=== PATIENT | female | born 1985 | race Two or more races ===

== ENCOUNTER 2018-11-24 12:51 | Emergency (ER) | payer OTHER ==
[~2018-11-24] VITALS: Ht 157.5 cm; Wt 113.9 kg
[2018-11-24 13:20] VITALS: BP 116/77
[2018-11-24] MEDS ORDERED: IBUPROFEN 400 MG TABLET. PO ONE (13:30)
[2018-11-24] MEDS ORDERED: DEXAMETHASONE SOD PHOS 20 MG/5 ML VIAL. PO ONE (13:30)
[2018-11-24] MEDS ORDERED: predniSONE 10 MG TABLET PO ONE (13:45)
[2018-11-24] MEDS ORDERED: PENICILLIN G BENZATHINE LA 1,200,000 UNIT/2 ML DISP.SYRIN. IM ONE (14:00)
[2018-11-24] MEDS ORDERED: PRED20TA PO (14:05)
--- NOTE | 2018-11-24 14:07 | PHYS DOC ---
Adult General Chief Complaint Chief Complaint: VISION PROBLEM HPI HPI 33-year-old female presents to ER via POV for complaints of intermittent dizziness and headache. Patient states she had fever and HARDEN on Friday when sxs started. She reports she has had intermittent dizziness and blurred vision- denying current dizziness or vision changes. She states she has history of migraines and this is similar headaches to prior ones. Patient also states her left ear has felt clogged and she has had a sore throat. Patient denies nausea or vomiting. She denies urinary symptoms. She is currently on her menstrual cycle. She denies any [id number] medications today stating she took Tylenol yesterday with minimal relief in symptoms. Patient denies smoking history or recent travel. She denies other symptoms and with similar illness. Review of Systems Review of Systems Constitutional: Reports fever on Friday- afebrile currently. Reports generalized fatigue Eyes: Denies change in visual acuity, redness, or eye pain. Reports intermittent blurred vision- denies currently HENT: Denies nasal congestion. Reports sore/swollen and lt ear feels clogged- denies inability to swallow or loss of hearing Respiratory: Denies cough or shortness of breath [] Cardiovascular: No additional information not addressed in HPI [] GI: Denies abdominal pain, nausea, vomiting, bloody stools or diarrhea [] : Denies dysuria or hematuria [] Musculoskeletal: Denies back pain or joint pain [] Integument: Denies rash or skin lesions [] Neurologic: Denies focal weakness or sensory changes. Reports intermittent HARDEN and dizziness- currently denies dizziness All other systems were reviewed and found to be within normal limits, except as documented in this note. Current Medications Current Medications Current Medications Medications (Trade) Dose Ordered Sig/Jitendra Start Time Stop Time Status Last Admin Dose Admin Dexamethasone Sodium Phosphate (Decadron) 8 mg 1X ONCE 11/24/18 13:30 11/24/18 13:41 DC Ibuprofen (Motrin) 600 mg 1X ONCE 11/24/18 13:30 11/24/18 13:46 DC 11/24/18 13:55 600 MG Penicillin G Benzathine (Bicillin L-A) 1,200,000 unit 1X ONCE 11/24/18 14:00 11/24/18 14:01 DC 11/24/18 14:01 1,200,000 UNIT Prednisone (Prednisone) 50 mg 1X ONCE 11/24/18 13:45 11/24/18 13:46 DC 11/24/18 13:55 50 MG Allergies Allergies Allergies Coded Allergies Type Severity Reaction Last Updated Verified No Known Drug Allergies 11/24/18 No Physical Exam Physical Exam Constitutional: Well developed, well nourished, no acute distress, non-toxic appearance. Steady unassisted gait HENT: Normocephalic, atraumatic, bilat. erythema at TM without bulging/perforation/purulence- lt ear worse appearance, oropharynx moist- bilat. tonsillar swelling/erythema- no exudate- uvula midline, nose normal. No muffled voice/pooling of secretions Eyes: 3mm PERRLA, EOMI- no pain w/eye movements, no nystagmus, conjunctiva normal, no discharge. [] Neck: Normal range of motion, no tenderness/nuchal rigidity, supple, no stridor Cardiovascular: Heart rate regular rhythm, no murmur [] Lungs & Thorax: Bilateral breath sounds clear to auscultation- resp. equal/nonlabored Abdomen: Bowel sounds normal, soft, no tenderness Skin: Warm, dry, no erythema, no rash. [] Back: No tenderness, no CVA tenderness. [] Extremities: No tenderness, no cyanosis, no clubbing, ROM intact, no edema. [] Neurologic: Alert and oriented X 3, normal motor function, normal sensory function, no focal deficits noted. [] Psychologic: Affect normal, judgement normal, mood normal. [] Current Patient Data Vital Signs Vital Signs Date Time Temp Pulse Resp B/P (MAP) Pulse Ox O2 Delivery O2 Flow Rate FiO2 11/24/18 13:20 98.0 69 16 116/77 (90) 98 Room Air 98.0 Lab Values Laboratory Tests Test 11/24/18 13:30 Group A Streptococcus Rapid Positive (NEGATIVE) EKG EKG [] Radiology/Procedures Radiology/Procedures [] Course & Med Decision Making Course & Med Decision Making Pertinent Labs reviewed. (See chart for details) 1350: Discussed if strep test with patient and options for treatment. Following discussion on prescription versus IM antibiotic she opted to have IM Bicillin LA injection while in the ER. Discussed symptoms probably related to strep as patient had left ear erythema and swelling at tympanic membrane without purulence or perforation. Discussed symptomatic treatment at home. Patient has denied any dizziness or vision changes while in the ER. She was afebrile and nontoxic in appearance. She was treated with dose of prednisone and ibuprofen while in the ER she had not taken any medications prior to arrival. Will provide prescription for 4 additional days of prednisone. Education provided on signs and symptoms to return to ER. Discharge instructions were discussed. Patient to follow-up with primary care physician if symptoms persist or with any concerns. Community clinic resource sheet was provided to patient. Sandra Disclaimer Dragon Disclaimer This electronic medical record was generated, in whole or in part, using a voice recognition dictation system. Departure Departure Impression: Primary Impression: Strep throat Additional Impression: Dizziness Disposition: 01 HOME, SELF-CARE Condition: STABLE Patient Instructions: Dizziness, Strep Throat Additional Instructions: Drink plenty of fluids. Tylenol and/or ibuprofen as needed for pain as directed on container. If symptoms persist follow-up with your primary care physician for reevaluation and further care. Scripts Prednisone (PREDNISONE) 20 Mg Tablet 20 MG PO DAILY, #6 TAB Prov: SHANIQUE JACKSON APRN 11/24/18 Problem Qualifiers SHANIQUE JACKSON APRN Nov 24, 2018 14:07
== END 2018-11-24 14:18 | disposition home or self-care (01) ==
LOC: ER 12:51
DX: R42 Dizziness and giddiness (principal); J02.0 Streptococcal pharyngitis; B95.0 Streptococcus, group A, as the cause of diseases classified elsewhere; G43.909 Migraine, unspecified, not intractable, without status migrainosus
CPT/HCPCS: 87880; 96372; 99283; J0561; J7512

== ENCOUNTER 2020-09-28 12:18 | Inpatient (IN) | payer SELFPAY ==
[~2020-09-28] VITALS: Ht 157.5 cm; Wt 120.4 kg
[~2020-09-28 12:18] MED LIST: PRED20TA PO
[2020-09-28] MEDS ORDERED: FAMOTIDINE 20 MG/2 ML VIAL IVP ONE (13:30)
[2020-09-28] MEDS ORDERED: ONDANSETRON PF 4 MG/2 ML VIAL. IVP ONE (13:30)
[2020-09-28] MEDS ORDERED: fentaNYL PF VIAL 100 MCG/2 ML VIAL IVP ONE (13:30)
[2020-09-28] MEDS ORDERED: IV NORMAL SALINE 1000ML BAG 1,000 ML IV ONE ×2 (13:30→18:00)
--- NOTE | 2020-09-28 14:35 | RAD ---
Exam Date: 09/28/2020 1:32 PM US ABDOMEN LTD Indication: Reason: epigastric pain ruq pain / Spl. Instructions: / History: TECHNIQUE: Multiple longitudinal and transverse sonographic images of the right upper quadrant and g allbladder are submitted for interpretation. FINDINGS: The liver is normal in size but diffusely increased in echogenicity and heterogeneous in echotexture. The portal vein is patent, with hepatopetal flow. No focal intrahepatic abnormality is seen. There are multiple small gallstones. There is circumferential gallbladder wall thickening up to 6 mm. Small pericholecystic fluid is noted. The common bile duct measures 6 mm in diameter. The sonographe r reported a positive sonographic Yo sign. The visualized abdominal aorta, inferior vena cava and pancreas are within normal limits. There is n o upper abdominal ascites. The right kidney is normal in appearance, measuring 11.1 cm. IMPRESSION: Diffusely increased hepatic echogenicity and heterogeneous echotexture, consistent with underlying fa tty infiltration and/or hepatocellular disease. This limits sonographic sensitivity. Gallstones with circumferential gallbladder wall thickening and small pericholecystic fluid. Positive sonographic Yo sign, per the it senior analyst. Findings are consistent with acute cholecystitis. Clin ical correlation is recommended to confirm positive Yo sign on clinical exam. Findings discussed with Dr. Mamta Redding at 09/28/2020 2:31 PM. FOR INTERNAL CODING PURPOSES Critical result: RESULT CODE: (C) Electronically signed by: Toni Carreno MD (09/28/2020 2:33 PM) [id number]
[2020-09-28 14:47] LABS: BASO # 0.1 x10^3/uL (0.0-0.2); BASO % 1 % (0-3); EOS % 0 % (0-3); HEMATOCRIT 42.6 % (36.0-47.0); HEMOGLOBIN 14.3 g/dL (12.0-15.5); LYMPH # 1.7 x10^3/uL (1.0-4.8); LYMPH % 13 % (24-48); MEAN CORPUSCULAR HEMOGLOBIN 31 pg (25-35); MEAN CORPUSCULAR HGB CONC 34 g/dL (31-37); MEAN CORPUSCULAR VOLUME 91 fL (79-100); MONO # 0.6 x10^3/uL (0.0-1.1); MONO % 5 % (0-9); NEUT # 10.8 x10^3/uL (1.8-7.7); NEUT % 81 % (31-73); PLATELET COUNT 240 x10^3/uL (140-400); RED BLOOD COUNT 4.68 x10^6/uL (3.50-5.40); RED CELL DISTRIBUTION WIDTH 13.7 % (11.5-14.5); WHITE BLOOD COUNT 13.2 x10^3/uL (4.0-11.0)
[2020-09-28 15:00] LABS: CALCIUM 8.9 mg/dL (8.5-10.1); CREATININE 0.8 mg/dL (0.6-1.0); GFR 81.2; POTASSIUM 3.4 mmol/L (3.5-5.1)
[2020-09-28 15:07] LABS: ALBUMIN 3.4 g/dL (3.4-5.0); ALBUMIN/GLOBULIN RATIO 0.7 (1.0-1.7); TOTAL BILIRUBIN 3.7 mg/dL (0.2-1.0); TOTAL PROTEIN 8.5 g/dL (6.4-8.2)
[2020-09-28] MEDS ORDERED: PIPERACILLIN/TAZOBACTAM 3.375 GM in IV NORMAL SALINE 50ML 50 ML IV ONE (16:00)
--- NOTE | 2020-09-28 16:14 | PDOC1 ---
History and Physical Date of Admission Date of Admission DATE: 09/28/20 TIME: 16:11 Identification/Chief Complaint Chief Complaint ruq, epigastric pain x 3 days, vomiting History of Present Illness History of Present Illness 34 yr old female seen at urgent care yesterday with lower, chest, ruq pain, not improving presents to the ED today complaining of moderate epigastric abdominal pain with nausea and vomiting, symptoms began on Friday. worse on touching her abdomen. She states she was seen at urgent care yesterday for the same complaint and had a negative test and was given a GI cocktail which did not relieve her symptoms. Denies any fever. Denies any chest pain or shortness of breath. Describes the pain as sharp and constant., US concerning for acute cholecystitis Gallstones with circumferential gallbladder wall thickening and small pericholecystic fluid. Positive sonographic Yo sign, lipase very high as well Past Medical History Cardiovascular: No pertinent hx Pulmonary: No pertinent hx GI: No pertinent hx Psych: No pertinent hx Infectious disease: No pertinent hx Renal/: No pertinent hx Endocrine: No pertinent hx Family History Family History: High Cholestrol, Hypertension Social History Smoke: No ALCOHOL: none Drugs: None Current Medications Current Medications Current Medications Sodium Chloride 1,000 ml @ 1,000 mls/hr 1X ONCE IV ; Start 09/28/20 at 13:30; Stop 09/28/20 at 14:29; Status DC Fentanyl Citrate (Fentanyl 2ml Vial) 50 mcg 1X ONCE IVP ; Start 09/28/20 at 13:30; Stop 09/28/20 at 13:31; Status DC Ondansetron HCl (Zofran) 4 mg 1X ONCE IVP ; Start 09/28/20 at 13:30; Stop 09/28/20 at 13:31; Status DC Famotidine (Pepcid Vial) 20 mg 1X ONCE IVP ; Start 09/28/20 at 13:30; Stop 09/28/20 at 13:31; Status DC Piperacillin Sod/ Tazobactam Sod 3.375 gm/Sodium Chloride 50 ml @ 100 mls/hr 1X ONCE IV ; Start 09/28/20 at 16:00; Stop 09/28/20 at 16:29 Active Scripts Active Prednisone 20 Mg Tablet 20 Mg PO DAILY Allergies Allergies: Coded Allergies: No Known Drug Allergies (Unverified , 4/8/21) ROS General: No: Chills, Night Sweats, Fatigue, Malaise, Appetite, Other PSYCHOLOGICAL ROS: No: Anxiety, Behavioral Disorder, Concentration difficultie, Decreased libido, Depression, Disorientation, Hallucinations, Hostility, Irritablity, Memory difficulties, Mood Swings, Obsessive thoughts, Physical abuse, Sexual abuse, Sleep disturbances, Suicidal ideation, Other Eyes: No Blurry vision, No Decreased vision, No Double vision, No Dry eyes, No Excessive tearing, No Eye Pain, No Itchy Eyes, No Loss of vision, No Photophobia, No Scotomata, No Uses contacts, No Uses glasses, No Other HEENT: No: Heacaches, Visual Changes, Hearing change, Nasal congestion, Nasal discharge, Oral lesions, Sinus pain, Sore Throat, Epistaxis, Sneezing, Snoring, Tinnitus, Vertigo, Vocal changes, Other ALLERGY AND IMMUNOLOGY: No: Hives, Insect Bite Sensitivity, Itchy/Watery Eyes, Nasal Congestion, Post Nasal Drip, Seasonal Allergies, Other Hematological and Lymphatic: No: Bleeding Problems, Blood Clots, Blood Transfusions, Brusing, Night Sweats, Pallor, Swollen Lymph Nodes, Other ENDOCRINE: No: Breast Changes, Galactorrhea, Hair Pattern Changes, Hot Flashes, Malaise/lethargy, Mood Swings, Palpitations, Polydipsia/polyuria, Skin Changes, Temperature Intolerance, Unexpected Weight Changes, Other Breast: No New/Changing Breast Lumps, No Nipple changes, No Nipple discharge, No Other Respiratory: No: Cough, Hemoptysis, Orthopnea, Pleuritic Pain, Shortness of breath, SOB with excertion, Sputum Changes, Stridor, Tachypnea, Wheezing, Other Cardiovascular: No Chest Pain, No Palpitations, No Orthopnea, No Paroxysmal Noc. Dyspnea, No Edema, No Lt Headedness, No Other Gastrointestinal: Yes Nausea, Yes Vomiting, Yes Abdominal Pain; No Diarrhea, No Constipation, No Melena, No Hematochezia, No Other Genitourinary: No Dysuria, No Frequency, No Incontinence, No Hematuria, No Retention, No Discharge, No Urgency, No Pain, No Flank Pain, No Other, No , No , No , No , No , No , No Musculoskeletal: No Gait Disturbance, No Joint Pain, No Joint Stiffness, No Joint Swelling, No Muscle Pain, No Muscular Weakness, No Pain In:, No Swelling In:, No Other Neurological: No Behavorial Changes, No Bowel/Bladder ControlChng, No Confusion, No Dizziness, No Gait Disturbance, No Headaches, No Impaired Coord/balance, No Memory Loss, No Numbness/Tingling, No Seizures, No Speech Problems, No Tremors, No Visual Changes, No Weakness, No Other Skin: Yes Dry Skin; No Eczema, No Hair Changes, No Lumps, No Mole Changes, No Mottling, No Nail Changes, No Pruritus, No Rash, No Skin Lesion Changes, No Other, No Acne Physical Exam Physical Exam LYING ON CART IN BED 9 ER General: Alert, Oriented X3, Cooperative, No acute distress, mild distress HEENT: Atraumatic, PERRLA, EOMI, Mucous membr. moist/pink Lungs: Clear to auscultation, Normal air movement Heart: S1S2, RRR, no thrills, no rubs, no gallops, no murmurs Cardiovascular: S1, S2 Breasts: Not examined Abdomen: Normal bowel sounds, Soft Rectal Exam: not examined PELVIC: Examination not indicated Extremities: No cyanosis, No edema Skin: No rashes Neuro: Normal speech, Sensation intact, Cranial nerves 3-12 NL Psych/Mental Status: Mental status NL, Mood NL Vitals Vitals Vital Signs Date Time Temp Pulse Resp B/P (MAP) Pulse Ox O2 Delivery O2 Flow Rate FiO2 09/28/20 13:05 98.8 71 18 160/106 (124) 96 Room Air 98.8 Labs Labs Laboratory Tests Test 09/28/20 14:40 White Blood Count 13.2 x10^3/uL (4.0-11.0) Red Blood Count 4.68 x10^6/uL (3.50-5.40) Hemoglobin 14.3 g/dL (12.0-15.5) Hematocrit 42.6 % (36.0-47.0) Mean Corpuscular Volume 91 fL (79-100) Mean Corpuscular Hemoglobin 31 pg (25-35) Mean Corpuscular Hemoglobin Concent 34 g/dL (31-37) Red Cell Distribution Width 13.7 % (11.5-14.5) Platelet Count 240 x10^3/uL (140-400) Neutrophils (%) (Auto) 81 % (31-73) Lymphocytes (%) (Auto) 13 % (24-48) Monocytes (%) (Auto) 5 % (0-9) Eosinophils (%) (Auto) 0 % (0-3) Basophils (%) (Auto) 1 % (0-3) Neutrophils # (Auto) 10.8 x10^3/uL (1.8-7.7) Lymphocytes # (Auto) 1.7 x10^3/uL (1.0-4.8) Monocytes # (Auto) 0.6 x10^3/uL (0.0-1.1) Eosinophils # (Auto) 0.0 x10^3/uL (0.0-0.7) Basophils # (Auto) 0.1 x10^3/uL (0.0-0.2) Sodium Level 137 mmol/L (136-145) Potassium Level 3.4 mmol/L (3.5-5.1) Chloride Level 100 mmol/L (98-107) Carbon Dioxide Level 28 mmol/L (21-32) Anion Gap 9 (6-14) Blood Urea Nitrogen 7 mg/dL (7-20) Creatinine 0.8 mg/dL (0.6-1.0) Estimated GFR (Cockcroft-Gault) 81.2 BUN/Creatinine Ratio 9 (6-20) Glucose Level 120 mg/dL (70-99) Calcium Level 8.9 mg/dL (8.5-10.1) Total Bilirubin 3.7 mg/dL (0.2-1.0) Aspartate Amino Transf (AST/SGOT) 165 U/L (15-37) Alanine Aminotransferase (ALT/SGPT) 213 U/L (14-59) Alkaline Phosphatase 156 U/L (46-116) Total Protein 8.5 g/dL (6.4-8.2) Albumin 3.4 g/dL (3.4-5.0) Albumin/Globulin Ratio 0.7 (1.0-1.7) Laboratory Tests Test 09/28/20 14:40 White Blood Count 13.2 x10^3/uL (4.0-11.0) Red Blood Count 4.68 x10^6/uL (3.50-5.40) Hemoglobin 14.3 g/dL (12.0-15.5) Hematocrit 42.6 % (36.0-47.0) Mean Corpuscular Volume 91 fL (79-100) Mean Corpuscular Hemoglobin 31 pg (25-35) Mean Corpuscular Hemoglobin Concent 34 g/dL (31-37) Red Cell Distribution Width 13.7 % (11.5-14.5) Platelet Count 240 x10^3/uL (140-400) Neutrophils (%) (Auto) 81 % (31-73) Lymphocytes (%) (Auto) 13 % (24-48) Monocytes (%) (Auto) 5 % (0-9) Eosinophils (%) (Auto) 0 % (0-3) Basophils (%) (Auto) 1 % (0-3) Neutrophils # (Auto) 10.8 x10^3/uL (1.8-7.7) Lymphocytes # (Auto) 1.7 x10^3/uL (1.0-4.8) Monocytes # (Auto) 0.6 x10^3/uL (0.0-1.1) Eosinophils # (Auto) 0.0 x10^3/uL (0.0-0.7) Basophils # (Auto) 0.1 x10^3/uL (0.0-0.2) Sodium Level 137 mmol/L (136-145) Potassium Level 3.4 mmol/L (3.5-5.1) Chloride Level 100 mmol/L (98-107) Carbon Dioxide Level 28 mmol/L (21-32) Anion Gap 9 (6-14) Blood Urea Nitrogen 7 mg/dL (7-20) Creatinine 0.8 mg/dL (0.6-1.0) Estimated GFR (Cockcroft-Gault) 81.2 BUN/Creatinine Ratio 9 (6-20) Glucose Level 120 mg/dL (70-99) Calcium Level 8.9 mg/dL (8.5-10.1) Total Bilirubin 3.7 mg/dL (0.2-1.0) Aspartate Amino Transf (AST/SGOT) 165 U/L (15-37) Alanine Aminotransferase (ALT/SGPT) 213 U/L (14-59) Alkaline Phosphatase 156 U/L (46-116) Total Protein 8.5 g/dL (6.4-8.2) Albumin 3.4 g/dL (3.4-5.0) Albumin/Globulin Ratio 0.7 (1.0-1.7) Images Images PATIENT: LUIS M TOURE ACCOUNT: [id number] : 1985 LOCATION: ER AGE: 34 SEX: F EXAM STATUS: REG ER ORD. PHYSICIAN: JOSE GUADALUPE PIERSON APRN REASON: epigastric pain ruq pain PROCEDURE: ABDOMEN LTD Exam Date: 09/28/2020 1:32 PM US ABDOMEN LTD Indication: Reason: epigastric pain ruq pain / Spl. Instructions: / History: TECHNIQUE: Multiple longitudinal and transverse sonographic images of the right upper quadrant and gallbladder are submitted for interpretation. FINDINGS: The liver is normal in size but diffusely increased in echogenicity and heterogeneous in echotexture. The portal vein is patent, with hepatopetal flow. No focal intrahepatic abnormality is seen. There are multiple small gallstones. There is circumferential gallbladder wall thickening up to 6 mm. Small pericholecystic fluid is noted. The common bile duct measures 6 mm in diameter. The schedule hanger reported a positive sonographic Yo sign. The visualized abdominal aorta, inferior vena cava and pancreas are within normal limits. There is no upper abdominal ascites. The right kidney is normal in appearance, measuring 11.1 cm. IMPRESSION: Diffusely increased hepatic echogenicity and heterogeneous echotexture, consistent with underlying fatty infiltration and/or hepatocellular disease. This limits sonographic sensitivity. Gallstones with circumferential gallbladder wall thickening and small pericholecystic fluid. Positive sonographic Yo sign, per the schedule hanger. Findings are consistent with acute cholecystitis. Clinical correlation is recommended to confirm positive Yo sign on clinical exam. Findings discussed with Dr. Mamta Redding at 09/28/2020 2:31 PM. FOR INTERNAL CODING PURPOSES Critical result: RESULT CODE: (C) Electronically signed by: Freida Carreno MD (09/28/2020 2:33 PM) [id number] DICTATED and SIGNED BY: FREIDA CARRENO MD DATE: 09/28/20 [id number] VTE Prophylaxis Ordered VTE Prophylaxis Devices: Yes VTE Pharmacological Prophylaxi: Yes Assessment/Plan Assessment/Plan IMPRESSION: ACUTE ruq PAIN/ gallstone pancreatitis Diffusely increased hepatic echogenicity and heterogeneous echotexture, consistent with underlying fatty infiltration and/or hepatocellular disease. Gallstones with circumferential gallbladder wall thickening Positive sonographic Yo sign, / consistent with acute cholecystitis morbid obesity SIRS LEUKOCYTOSIS PLAN ADMIT NPO Surgery consult iv fluid support GI CONSULT IV PAIN CONTROL DVT PROPHYLAXIS GI prophylaxis, iv protonix urine hcg iv zosyn Justifications for Admission Other Justification KRISSY JAY MD Sep 28, 2020 16:13
--- NOTE | 2020-09-28 17:48 | PHYS DOC ---
Past Medical History Past Medical History: No Pertinent History Past Surgical History: No Surgical History Smoking Status: Never Smoker Alcohol Use: None Drug Use: None General Adult EDM: Chief Complaint: ABDOMINAL PAIN HPI: HPI: Patient is a 34 year old female no significant medical history who presents to the ED today complaining of moderate epigastric abdominal pain with nausea and vomiting, symptoms began on Friday. Patient symptoms are worse on touching her abdomen. Denies anything specifically relieving the symptoms. She states she was seen at urgent care yesterday for the same complaint and had a negative test and was given a GI cocktail which did not relieve her symptoms. Denies any fever. Denies any chest pain or shortness of breath. Describes the pain as sharp and constant. Review of Systems: Review of Systems: Constitutional: Denies fever or chills. [] Eyes: Denies change in visual acuity. [] HENT: Denies nasal congestion or sore throat. [] Respiratory: Denies cough or shortness of breath. [] Cardiovascular: Denies chest pain or edema. [] GI: Reports epigastric abdominal pain with nausea and vomiting, denies bloody stools or diarrhea. [] : Denies dysuria. [] Musculoskeletal: Denies back pain or joint pain. [] Integument: Denies rash. [] Neurologic: Denies headache, focal weakness or sensory changes. [] Psychiatric: Denies depression or anxiety. [] Heart Score: C/O Chest Pain: N/A Risk Factors: Risk Factors: DM, Current or recent (<one month) smoker, HTN, HLP, family history of CAD, obesity. Risk Scores: Score 0 - 3: 2.5% MACE over next 6 weeks - Discharge Home Score 4 - 6: 20.3% MACE over next 6 weeks - Admit for Clinical Observation Score 7 - 10: 72.7% MACE over next 6 weeks - Early Invasive Strategies Current Medications: Current Medications Medications (Trade) Dose Ordered Sig/Jitendra Start Time Stop Time Status Last Admin Dose Admin Famotidine (Pepcid Vial) 20 mg 1X ONCE 09/28/20 13:30 09/28/20 13:31 DC 09/28/20 17:10 20 MG Fentanyl Citrate (Fentanyl 2ml Vial) 50 mcg 1X ONCE 09/28/20 13:30 09/28/20 13:31 DC 09/28/20 17:10 50 MCG Ondansetron HCl (Zofran) 4 mg 1X ONCE 09/28/20 13:30 09/28/20 13:31 DC 09/28/20 17:10 4 MG Piperacillin Sod/ Tazobactam Sod 3.375 gm/Sodium Chloride 50 ml @ 100 mls/hr 1X ONCE 09/28/20 16:00 09/28/20 16:29 DC Sodium Chloride 1,000 ml @ 1,000 mls/hr 1X ONCE 09/28/20 13:30 09/28/20 14:29 DC 09/28/20 17:08 1,000 MLS/HR Allergies: Allergies: Allergies Coded Allergies Type Severity Reaction Last Updated Verified No Known Drug Allergies 09/28/20 No Physical Exam: PE: Constitutional: Well developed, well nourished, no acute distress, non-toxic appearance. [] HENT: Normocephalic, atraumatic, bilateral external ears normal, oropharynx moist, no oral exudates, nose normal. [] Eyes: PERRLA, EOMI, conjunctiva normal, no discharge. [] Neck: Normal range of motion, no tenderness, supple, no stridor. [] Cardiovascular:Heart rate regular rhythm, no murmur [] Lungs & Thorax: Bilateral breath sounds clear to auscultation [] Abdomen: Rounded abdomen. Bowel sounds normal, soft, moderate epigastric pain a s well as moderate right upper quadrant pain with positive Yo sign, no right lower quadrant pain no tenderness no masses, no pulsatile masses. [] Skin: Warm, dry, no erythema, no rash. [] Back: No tenderness, no CVA tenderness. [] Extremities: No tenderness, no cyanosis, no clubbing, ROM intact, no edema. [] Neurologic: Alert and oriented X 3, normal motor function, normal sensory function, no focal deficits noted. [] Psychologic: Affect normal, judgement normal, mood normal. [] Current Patient Data: Labs: Laboratory Tests Test 09/28/20 14:40 White Blood Count 13.2 x10^3/uL (4.0-11.0) H Red Blood Count 4.68 x10^6/uL (3.50-5.40) Hemoglobin 14.3 g/dL (12.0-15.5) Hematocrit 42.6 % (36.0-47.0) Mean Corpuscular Volume 91 fL (79-100) Mean Corpuscular Hemoglobin 31 pg (25-35) Mean Corpuscular Hemoglobin Concent 34 g/dL (31-37) Red Cell Distribution Width 13.7 % (11.5-14.5) Platelet Count 240 x10^3/uL (140-400) Neutrophils (%) (Auto) 81 % (31-73) H Lymphocytes (%) (Auto) 13 % (24-48) L Monocytes (%) (Auto) 5 % (0-9) Eosinophils (%) (Auto) 0 % (0-3) Basophils (%) (Auto) 1 % (0-3) Neutrophils # (Auto) 10.8 x10^3/uL (1.8-7.7) H Lymphocytes # (Auto) 1.7 x10^3/uL (1.0-4.8) Monocytes # (Auto) 0.6 x10^3/uL (0.0-1.1) Eosinophils # (Auto) 0.0 x10^3/uL (0.0-0.7) Basophils # (Auto) 0.1 x10^3/uL (0.0-0.2) Sodium Level 137 mmol/L (136-145) Potassium Level 3.4 mmol/L (3.5-5.1) L Chloride Level 100 mmol/L (98-107) Carbon Dioxide Level 28 mmol/L (21-32) Anion Gap 9 (6-14) Blood Urea Nitrogen 7 mg/dL (7-20) Creatinine 0.8 mg/dL (0.6-1.0) Estimated GFR (Cockcroft-Gault) 81.2 BUN/Creatinine Ratio 9 (6-20) Glucose Level 120 mg/dL (70-99) H Calcium Level 8.9 mg/dL (8.5-10.1) Total Bilirubin 3.7 mg/dL (0.2-1.0) H Aspartate Amino Transferase (AST) 165 U/L (15-37) H Alanine Aminotransferase (ALT) 213 U/L (14-59) H Alkaline Phosphatase 156 U/L (46-116) H Total Protein 8.5 g/dL (6.4-8.2) H Albumin 3.4 g/dL (3.4-5.0) Albumin/Globulin Ratio 0.7 (1.0-1.7) L Lipase 60181 U/L (73-393) H Laboratory Tests 09/28/20 14:40 Laboratory Tests 09/28/20 14:40 Vital Signs: Vital Signs Date Time Temp Pulse Resp B/P (MAP) Pulse Ox O2 Delivery O2 Flow Rate FiO2 09/28/20 17:12 163/99 (120) 09/28/20 13:48 68 98 Room Air 09/28/20 13:05 98.8 18 98.8 EKG: EKG: [] Radiology/Procedures: Radiology/Procedures: []PROCEDURE: ABDOMEN LTD Exam Date: 09/28/2020 1:32 PM US ABDOMEN LTD Indication: Reason: epigastric pain ruq pain / Spl. Instructions: / History: TECHNIQUE: Multiple longitudinal and transverse sonographic images of the right upper quadrant and gallbladder are submitted for interpretation. FINDINGS: The liver is normal in size but diffusely increased in echogenicity and heterogeneous in echotexture. The portal vein is patent, with hepatopetal flow. No focal intrahepatic abnormality is seen. There are multiple small gallstones. There is circumferential gallbladder wall thickening up to 6 mm. Small pericholecystic fluid is noted. The common bile duct measures 6 mm in diameter. The optical designer reported a positive sonographic Yo sign. The visualized abdominal aorta, inferior vena cava and pancreas are within normal limits. There is no upper abdominal ascites. The right kidney is normal in appearance, measuring 11.1 cm. IMPRESSION: Diffusely increased hepatic echogenicity and heterogeneous echotexture, consistent with underlying fatty infiltration and/or hepatocellular disease. This limits sonographic sensitivity. Gallstones with circumferential gallbladder wall thickening and small pericholecystic fluid. Positive sonographic Yo sign, per the optical designer. Findings are consistent with acute cholecystitis. Clinical correlation is recommended to confirm positive Yo sign on clinical exam. Findings discussed with Dr. Mamta Redding at 09/28/2020 2:31 PM. FOR INTERNAL CODING PURPOSES Critical result: RESULT CODE: (C) Electronically signed by: Freida Carreno MD (09/28/2020 2:33 PM) [id number] DICTATED and SIGNED BY: FREIDA CARRENO MD DATE: 09/28/20 [id number] 0 Course & Med Decision Making: Course & Med Decision Making Pertinent Labs and Imaging studies reviewed. (See chart for details) This is a 34-year-old female patient presented to the ED today complaining of epigastric abdominal pain since Friday. Vitals on arrival to the ED temperature 98.8, heart rate 71, respiration 18, blood pressure 160/106, O2 sats 96% on room air CBC with a WBC of 13.7, CMP with bilirubin of 3.7, AST was 65, ALT 213, ALK 156. Lipase 14,668 Limited right upper quadrant ultrasound was noted for acute cholecystitis We will continue IV fluids, given Zosyn. Spoke with Dr. Balderrama will follow up with patient Spoke with GI Dr. Lomax Spoke with Dr. Rios who accepted patient for admission [place] Disclaimer: Sandra Disclaimer: This electronic medical record was generated, in whole or in part, using a voice recognition dictation system. Departure Departure Impression: Primary Impression: Acute cholecystitis Additional Impression: Acute pancreatitis Qualified Codes: K85.90 - Acute pancreatitis without necrosis or infection, unspecified Disposition: 09 ADMITTED INPT THIS HOSP Condition: STABLE Referrals: NO PCP (PCP) JOSE GUADALUPE PIERSON [employer]GEANT [employer] Sep 28, 2020 17:48
[2020-09-28] MEDS ORDERED: ONDANSETRON PF 4 MG/2 ML VIAL. IV PRN ×2 (18:00→20:15)
[2020-09-28] MEDS ORDERED: fentaNYL PF VIAL 100 MCG/2 ML VIAL IV PRN (18:00)
[2020-09-28 19:00] VITALS: BP 152/96
[2020-09-28] MEDS ORDERED: HYDROmorphone 2 MG/ML VIAL IV PRN (20:15)
[2020-09-28] MEDS ORDERED: ACETAMINOPHEN 325 MG TABLET. PO PRN (20:15)
[2020-09-28] MEDS ORDERED: cloNIDine HCL 0.1 MG TABLET PO PRN (20:15)
[2020-09-28] MEDS ORDERED: DOCUSATE SODIUM 100 MG CAPSULE. PO PRN (20:15)
[2020-09-28] MEDS ORDERED: ALBUTEROL SULFATE 2.5 MG/3 ML NEBU. NEB PRN (20:15)
[2020-09-28] MEDS ORDERED: hydrALAZINE 20 MG/ML VIAL. IVP PRN (20:15)
[2020-09-28] MEDS ORDERED: SODIUM PHOSPHATES 19/7GM 133 ML ENEMA. PR PRN (20:15)
[2020-09-28] MEDS ORDERED: ACETAMINOPHEN 650 MG SUPP.RECT. PR PRN (20:15)
[2020-09-28] MEDS ORDERED: 0.9 % SODIUM CHLORIDE 10 ML DISP.SYRIN. IV PRN (20:15)
[2020-09-28] MEDS ORDERED: guaiFENesin ORAL 200 MG/10 ML LIQUID. PO PRN (20:15)
[2020-09-28] MEDS ORDERED: LORazepam 0.5 MG TABLET PO PRN (20:15)
--- NOTE | 2020-09-28 21:30 | NUR ---
Patient is informed that a urine specimen needed, as to check for -surgery potentially planned for tomorrow. Patient verbalizes to understand.
[2020-09-28] MEDS: PANTOPRAZOLE IV PUSH 40 MG VIAL. IVP SCH (21:58)
[2020-09-28] MEDS: ENOXAPARIN 40 MG/0.4 ML SYRINGE. SQ SCH (21:59)
[2020-09-28] MEDS: IV NORMAL SALINE 1000ML BAG 1,000 ML IV SCH (22:00)
[2020-09-28 23:00] VITALS: BP 133/90
[2020-09-29] MEDS: PIPERACILLIN/TAZOBACTAM 3.375 GM in IV NORMAL SALINE 50ML 50 ML IV SCH ×4 (00:04→16:34)
[2020-09-29 03:00] VITALS: BP 131/82
[2020-09-29] MEDS: IV NORMAL SALINE 1000ML BAG 1,000 ML IV SCH ×2 (03:26→15:07)
--- NOTE | 2020-09-29 03:41 | NUR ---
Patient voided in the speci todd, but reported that she started her 'period' and since the urine had blood in it, she dumped it out. Patient is taking a shower, and states she will give a specimen before the am,
[2020-09-29 07:00] VITALS: BP 114/59
[2020-09-29] MEDS: PANTOPRAZOLE IV PUSH 40 MG VIAL. IVP SCH (07:56)
--- NOTE | 2020-09-29 09:00 | PDOC2 ---
LAURIE BLACK REGULATORY LEADER 09/29/20 0900: CONSULT Date of Consult Date of Consult DATE: 09/29/20 TIME: 08:56 Reason for Consult Reason for Consult: cholecystitis Referring Physician Referring Physician: ER Identification/Chief Complaint Chief Complaint abdominal pain Source Source: Chart review, Patient History of Present Illness Reason for Visit: Admitted with RUQ pain, nausea and emesis for almost a week. She has had these symptoms in past, although this time did not improve. No fevers or chills. Past Medical History Cardiovascular: No pertinent hx Pulmonary: No pertinent hx GI: No pertinent hx Psych: No pertinent hx Infectious disease: No pertinent hx Renal/: No pertinent hx Endocrine: No pertinent hx Past Surgical History Past Surgical History: Family History Family History: High Cholestrol, Hypertension Social History No ALCOHOL: none Drugs: None Current Problem List Problem List Problems Medical Problems: (1) Acute cholecystitis Status: Acute (2) Acute pancreatitis Status: Acute (3) Cholecystitis Status: Acute Current Medications Current Medications Current Medications Sodium Chloride 1,000 ml @ 1,000 mls/hr 1X ONCE IV Last administered on 09/28/20at 17:08; Start 09/28/20 at 13:30; Stop 09/28/20 at 14:29; Status DC Fentanyl Citrate (Fentanyl 2ml Vial) 50 mcg 1X ONCE IVP Last administered on 09/28/20at 17:10; Start 09/28/20 at 13:30; Stop 09/28/20 at 13:31; Status DC Ondansetron HCl (Zofran) 4 mg 1X ONCE IVP Last administered on 09/28/20at 17:10; Start 09/28/20 at 13:30; Stop 09/28/20 at 13:31; Status DC Famotidine (Pepcid Vial) 20 mg 1X ONCE IVP Last administered on 09/28/20at 17:10; Start 09/28/20 at 13:30; Stop 09/28/20 at 13:31; Status DC Piperacillin Sod/ Tazobactam Sod 3.375 gm/Sodium Chloride 50 ml @ 100 mls/hr 1X ONCE IV Last administered on 09/28/20at 18:28; Start 09/28/20 at 16:00; Stop 09/28/20 at 16:29; Status DC Ondansetron HCl (Zofran) 4 mg PRN Q8HRS PRN IV NAUSEA/VOMITING; Start 09/28/20 at 18:00; Stop 09/29/20 at 17:59 Fentanyl Citrate (Fentanyl 2ml Vial) 50 mcg PRN Q1HR PRN IV PAIN; Start 09/28/20 at 18:00; Stop 09/29/20 at 17:59 Sodium Chloride 1,000 ml @ 125 mls/hr 1X ONCE IV Last administered on 09/28/20at 18:28; Start 09/28/20 at 18:00; Stop 09/29/20 at 01:59; Status DC Sodium Chloride (Normal Saline Flush) 3 ml QSHIFT PRN IV AFTER MEDS AND BLOOD DRAWS; Start 09/28/20 at 20:15 Sodium Chloride 1,000 ml @ 100 mls/hr Q10H IV Last administered on 09/29/20at 03:26; Start 09/28/20 at 20:15 Ondansetron HCl (Zofran) 4 mg PRN Q4HRS PRN IV NAUSEA/VOMITING; Start 09/28/20 at 20:15 Acetaminophen (Tylenol) 650 mg PRN Q4HRS PRN PO TEMP OVER 100.4F OR MILD PAIN; Start 09/28/20 at 20:15 Acetaminophen (Tylenol Supp) 650 mg PRN Q4HRS PRN TN TEMP OVER 100.4F OR MILD PAIN; Start 09/28/20 at 20:15 Clonidine HCl (Catapres) 0.1 mg PRN Q6HRS PRN PO SBP>160 OR DBP>90; Start 09/28/20 at 20:15 Sodium Monofluorophosphate (Fleet Adult) 133 ml PRN DAILY PRN TN CONSTIPATION; Start 09/28/20 at 20:15 Docusate Sodium (Colace) 100 mg PRN BID PRN PO HARD STOOLS; Start 09/28/20 at 20:15 Albuterol Sulfate (Ventolin Neb Soln) 2.5 mg PRN Q4HRS PRN NEB SHORTNESS OF BREATH; Start 09/28/20 at 20:15 Guaifenesin (Robitussin) 200 mg PRN Q4HRS PRN PO COUGH; Start 09/28/20 at 20:15 Lorazepam (Ativan) 0.5 mg PRN Q4HRS PRN PO ANXIETY / AGITATION; Start 09/28/20 at 20:15 Hydromorphone HCl (Dilaudid) 0.5 mg PRN Q2HRS PRN IV SEVERE PAIN 7-10; Start 09/28/20 at 20:15 Enoxaparin Sodium (Lovenox 40mg Syringe) 40 mg Q24H SQ Last administered on 09/28/20at 21:59; Start 09/28/20 at 20:15 Piperacillin Sod/ Tazobactam Sod 3.375 gm/Sodium Chloride 50 ml @ 100 mls/hr Q6HRS IV Last administered on 09/29/20at 05:44; Start 09/29/20 at 00:00 Pantoprazole Sodium (PROTONIX VIAL for IV PUSH) 40 mg DAILY08 IVP Last administered on 09/29/20at 07:56; Start 09/28/20 at 20:15 Hydralazine HCl (Apresoline Inj) 10 mg PRN Q4HRS PRN IVP ELEVATED BP, SEE COMMENTS; Start 09/28/20 at 20:15 Active Scripts Active Prednisone 20 Mg Tablet 20 Mg PO DAILY Allergies Allergies: Coded Allergies: No Known Drug Allergies (Unverified , 09/28/20) ROS General: No: Chills, Other (fevers ) PSYCHOLOGICAL ROS: No: Anxiety, Depression Eyes: No Blurry vision, No Double vision HEENT: No: Heacaches, Sore Throat Hematological and Lymphatic: No: Bleeding Problems, Blood Clots Respiratory: No: Cough, Shortness of breath Cardiovascular: No Chest Pain, No Palpitations Gastrointestinal: Yes Other (see hpi) Genitourinary: No Dysuria, No Hematuria Musculoskeletal: No Joint Pain, No Muscle Pain Neurological: No Impaired Coord/balance, No Numbness/Tingling Skin: No Pruritus, No Rash Physical Exam General: Alert, Oriented X3, Cooperative HEENT: Atraumatic, PERRLA Lungs: Clear to auscultation Heart: Regular rate, Normal S1, Normal S2 Abdomen: Soft, Other (TTP upper abdomen ) Extremities: No clubbing, No cyanosis Skin: No rashes, No breakdown Neuro: Normal gait, Normal speech Psych/Mental Status: Mental status NL, Mood NL MUSCULOSKELETAL: No deformity, No swelling Vitals VITALS Vital Signs Date Time Temp Pulse Resp B/P (MAP) Pulse Ox O2 Delivery O2 Flow Rate FiO2 09/29/20 07:31 Room Air 09/29/20 07:00 98.4 83 17 114/59 (77) 93 98.4 Labs Labs Laboratory Tests Test 09/28/20 14:40 09/28/20 17:15 White Blood Count 13.2 x10^3/uL (4.0-11.0) Red Blood Count 4.68 x10^6/uL (3.50-5.40) Hemoglobin 14.3 g/dL (12.0-15.5) Hematocrit 42.6 % (36.0-47.0) Mean Corpuscular Volume 91 fL (79-100) Mean Corpuscular Hemoglobin 31 pg (25-35) Mean Corpuscular Hemoglobin Concent 34 g/dL (31-37) Red Cell Distribution Width 13.7 % (11.5-14.5) Platelet Count 240 x10^3/uL (140-400) Neutrophils (%) (Auto) 81 % (31-73) Lymphocytes (%) (Auto) 13 % (24-48) Monocytes (%) (Auto) 5 % (0-9) Eosinophils (%) (Auto) 0 % (0-3) Basophils (%) (Auto) 1 % (0-3) Neutrophils # (Auto) 10.8 x10^3/uL (1.8-7.7) Lymphocytes # (Auto) 1.7 x10^3/uL (1.0-4.8) Monocytes # (Auto) 0.6 x10^3/uL (0.0-1.1) Eosinophils # (Auto) 0.0 x10^3/uL (0.0-0.7) Basophils # (Auto) 0.1 x10^3/uL (0.0-0.2) Sodium Level 137 mmol/L (136-145) Potassium Level 3.4 mmol/L (3.5-5.1) Chloride Level 100 mmol/L (98-107) Carbon Dioxide Level 28 mmol/L (21-32) Anion Gap 9 (6-14) Blood Urea Nitrogen 7 mg/dL (7-20) Creatinine 0.8 mg/dL (0.6-1.0) Estimated GFR (Cockcroft-Gault) 81.2 BUN/Creatinine Ratio 9 (6-20) Glucose Level 120 mg/dL (70-99) Calcium Level 8.9 mg/dL (8.5-10.1) Total Bilirubin 3.7 mg/dL (0.2-1.0) Aspartate Amino Transf (AST/SGOT) 165 U/L (15-37) Alanine Aminotransferase (ALT/SGPT) 213 U/L (14-59) Alkaline Phosphatase 156 U/L (46-116) Total Protein 8.5 g/dL (6.4-8.2) Albumin 3.4 g/dL (3.4-5.0) Albumin/Globulin Ratio 0.7 (1.0-1.7) Lipase 10019 U/L (73-393) SARS-CoV-2 RNA (AMEENA) Negative (Negative) SARS-CoV-2 Antigen (Rapid) Negative (NEGATIVE) Laboratory Tests Test 09/28/20 14:40 09/28/20 17:15 White Blood Count 13.2 x10^3/uL (4.0-11.0) Red Blood Count 4.68 x10^6/uL (3.50-5.40) Hemoglobin 14.3 g/dL (12.0-15.5) Hematocrit 42.6 % (36.0-47.0) Mean Corpuscular Volume 91 fL (79-100) Mean Corpuscular Hemoglobin 31 pg (25-35) Mean Corpuscular Hemoglobin Concent 34 g/dL (31-37) Red Cell Distribution Width 13.7 % (11.5-14.5) Platelet Count 240 x10^3/uL (140-400) Neutrophils (%) (Auto) 81 % (31-73) Lymphocytes (%) (Auto) 13 % (24-48) Monocytes (%) (Auto) 5 % (0-9) Eosinophils (%) (Auto) 0 % (0-3) Basophils (%) (Auto) 1 % (0-3) Neutrophils # (Auto) 10.8 x10^3/uL (1.8-7.7) Lymphocytes # (Auto) 1.7 x10^3/uL (1.0-4.8) Monocytes # (Auto) 0.6 x10^3/uL (0.0-1.1) Eosinophils # (Auto) 0.0 x10^3/uL (0.0-0.7) Basophils # (Auto) 0.1 x10^3/uL (0.0-0.2) Sodium Level 137 mmol/L (136-145) Potassium Level 3.4 mmol/L (3.5-5.1) Chloride Level 100 mmol/L (98-107) Carbon Dioxide Level 28 mmol/L (21-32) Anion Gap 9 (6-14) Blood Urea Nitrogen 7 mg/dL (7-20) Creatinine 0.8 mg/dL (0.6-1.0) Estimated GFR (Cockcroft-Gault) 81.2 BUN/Creatinine Ratio 9 (6-20) Glucose Level 120 mg/dL (70-99) Calcium Level 8.9 mg/dL (8.5-10.1) Total Bilirubin 3.7 mg/dL (0.2-1.0) Aspartate Amino Transf (AST/SGOT) 165 U/L (15-37) Alanine Aminotransferase (ALT/SGPT) 213 U/L (14-59) Alkaline Phosphatase 156 U/L (46-116) Total Protein 8.5 g/dL (6.4-8.2) Albumin 3.4 g/dL (3.4-5.0) Albumin/Globulin Ratio 0.7 (1.0-1.7) Lipase 07409 U/L (73-393) SARS-CoV-2 RNA (AMEENA) Negative (Negative) SARS-CoV-2 Antigen (Rapid) Negative (NEGATIVE) Assessment/Plan Assessment/Plan gallstone pancreatitis lipase [id number] to evaluate pancreatitis NPO, bowel rest lap gris once pancreatitis resolved KRISSY BLOOD MD 09/29/20 0948: CONSULT Assessment/Plan Assessment/Plan Patient seen and examined by me currently resting comfortably in bed obese female with epigastric abdominal pain elevated lipase bilirubin consistent with gallstone pancreatitis. Agree with [place] assessment plan follow-up on CT results recommend cholecystectomy once pancreatitis has resolved LAURIE BLACK APRN Sep 29, 2020 09:00 KRISSY BLOOD MD Sep 29, 2020 09:48
[2020-09-29] MEDS ORDERED: IOHEXOL 240 MG/ML 50ML VIAL. PO ONE (09:15)
[2020-09-29] MEDS ORDERED: IOHEXOL 300 MG/ML 100ML VIAL. IV ONE (09:15)
[2020-09-29] MEDS ORDERED: CONTRAST GIVEN. MC PRN (09:15)
--- NOTE | 2020-09-29 09:44 | PDOC2 ---
GI CONSULT Date of Service: DATE: 09/29/20 TIME: 09:30 Reason For Consult: gallstone pancreatitis HPI: HPI: 34 y/o female admitted through ER. Intermittent upper abd pain for years, was able to just ignore it. Last occurred two weeks ago, then happened again Friday. Worse than usual. Descr ibes discomfort in mid abdomen radiating all around. Also this time feels discomfort and fullness in epigastrium/lower chest "like something is blocked." Also describes a "bitter taste" and says "I can't eat." Vomited once after attempt to eat a cracker and drink some water. Was evaluated at on Friday - GI cocktail helped x 2 hours, was also given an acid medicine. Labs note leukocytosis, elevated LFT, elevated lipase. US showed gallstones, fatty liver, GB wall thickening, +Yo's, and CBD 6mm. Denies reflux/heartburn, dysphagia, hematemesis, diarrhea, constipation, hematochezia, melena, and weight loss. No previous EGD or colonoscopy. No GB, liver, pancreas, or PUD history. Took ibuprofen once on Friday. Tolerating ice chips, feels thirty, pain medications helpful. PMH: PMH: denies FH: Family History: No pertinent hx (denies GI cancers and GB, liver, or pancreas problems) Social History: Smoke: No ALCOHOL: none Drugs: None ROS: GEN: Denies fevers, chills, sweats HEENT: Denies blurred vision, sore throat CV: Denies chest pain RESP: Denies shortness of air, cough GI: Per HPI : Denies hematuria, dysuria ENDO: Denies weight changes NEURO: Denies confusion, dizziness MSK: Denies weakness, joint pain/swelling SKIN: Denies jaundice, pruritus Vitals: Vitals: Vital Signs Date Time Temp Pulse Resp B/P (MAP) Pulse Ox O2 Delivery O2 Flow Rate FiO2 09/29/20 07:31 Room Air 09/29/20 07:00 98.4 83 17 114/59 (77) 93 98.4 Labs: Labs: Laboratory Tests Test 09/28/20 14:40 09/28/20 17:15 White Blood Count 13.2 x10^3/uL (4.0-11.0) Red Blood Count 4.68 x10^6/uL (3.50-5.40) Hemoglobin 14.3 g/dL (12.0-15.5) Hematocrit 42.6 % (36.0-47.0) Mean Corpuscular Volume 91 fL (79-100) Mean Corpuscular Hemoglobin 31 pg (25-35) Mean Corpuscular Hemoglobin Concent 34 g/dL (31-37) Red Cell Distribution Width 13.7 % (11.5-14.5) Platelet Count 240 x10^3/uL (140-400) Neutrophils (%) (Auto) 81 % (31-73) Lymphocytes (%) (Auto) 13 % (24-48) Monocytes (%) (Auto) 5 % (0-9) Eosinophils (%) (Auto) 0 % (0-3) Basophils (%) (Auto) 1 % (0-3) Neutrophils # (Auto) 10.8 x10^3/uL (1.8-7.7) Lymphocytes # (Auto) 1.7 x10^3/uL (1.0-4.8) Monocytes # (Auto) 0.6 x10^3/uL (0.0-1.1) Eosinophils # (Auto) 0.0 x10^3/uL (0.0-0.7) Basophils # (Auto) 0.1 x10^3/uL (0.0-0.2) Sodium Level 137 mmol/L (136-145) Potassium Level 3.4 mmol/L (3.5-5.1) Chloride Level 100 mmol/L (98-107) Carbon Dioxide Level 28 mmol/L (21-32) Anion Gap 9 (6-14) Blood Urea Nitrogen 7 mg/dL (7-20) Creatinine 0.8 mg/dL (0.6-1.0) Estimated GFR (Cockcroft-Gault) 81.2 BUN/Creatinine Ratio 9 (6-20) Glucose Level 120 mg/dL (70-99) Calcium Level 8.9 mg/dL (8.5-10.1) Total Bilirubin 3.7 mg/dL (0.2-1.0) Aspartate Amino Transf (AST/SGOT) 165 U/L (15-37) Alanine Aminotransferase (ALT/SGPT) 213 U/L (14-59) Alkaline Phosphatase 156 U/L (46-116) Total Protein 8.5 g/dL (6.4-8.2) Albumin 3.4 g/dL (3.4-5.0) Albumin/Globulin Ratio 0.7 (1.0-1.7) Lipase 30404 U/L (73-393) SARS-CoV-2 RNA (AMEENA) Negative (Negative) SARS-CoV-2 Antigen (Rapid) Negative (NEGATIVE) Allergies: Coded Allergies: No Known Drug Allergies (Unverified , 09/28/20) Medications: Current Medications Medications (Trade) Dose Ordered Sig/Jitendra Route PRN Reason Start Time Stop Time Status Last Admin Dose Admin Sodium Chloride 1,000 ml @ 1,000 mls/hr 1X ONCE IV 09/28/20 13:30 09/28/20 14:29 DC 09/28/20 17:08 Fentanyl Citrate (Fentanyl 2ml Vial) 50 mcg 1X ONCE IVP 09/28/20 13:30 09/28/20 13:31 DC 09/28/20 17:10 Ondansetron HCl (Zofran) 4 mg 1X ONCE IVP 09/28/20 13:30 09/28/20 13:31 DC 09/28/20 17:10 Famotidine (Pepcid Vial) 20 mg 1X ONCE IVP 09/28/20 13:30 09/28/20 13:31 DC 09/28/20 17:10 Piperacillin Sod/ Tazobactam Sod 3.375 gm/Sodium Chloride 50 ml @ 100 mls/hr 1X ONCE IV 09/28/20 16:00 09/28/20 16:29 DC 09/28/20 18:28 Sodium Chloride 1,000 ml @ 125 mls/hr 1X ONCE IV 09/28/20 18:00 09/29/20 01:59 DC 09/28/20 18:28 Sodium Chloride 1,000 ml @ 100 mls/hr Q10H IV 09/28/20 20:15 09/29/20 03:26 Enoxaparin Sodium (Lovenox 40mg Syringe) 40 mg Q24H SQ 09/28/20 20:15 09/28/20 21:59 Piperacillin Sod/ Tazobactam Sod 3.375 gm/Sodium Chloride 50 ml @ 100 mls/hr Q6HRS IV 09/29/20 00:00 09/29/20 05:44 Pantoprazole Sodium (PROTONIX VIAL for IV PUSH) 40 mg DAILY08 IVP 09/28/20 20:15 09/29/20 07:56 Potassium Chloride/Water 100 ml @ 50 mls/hr 1X ONCE IV 09/29/20 10:00 09/29/20 11:59 09/29/20 09:16 Iohexol (Omnipaque 240 Mg/ml) 50 ml 1X ONCE PO 09/29/20 09:15 09/29/20 09:16 DC 09/29/20 09:15 Imaging: Imaging: RUQ US 09/28 FINDINGS: The liver is normal in size but diffusely increased in echogenicity and heterogeneous in echotexture. The portal vein is patent, with hepatopetal flow. No focal intrahepatic abnormality is seen. There are multiple small gallstones. There is circumferential gallbladder wall thickening up to 6 mm. Small pericholecystic fluid is noted. The common bile duct measures 6 mm in diameter. The patient case manager reported a positive sonographic Yo sign. The visualized abdominal aorta, inferior vena cava and pancreas are within normal limits. There is no upper abdominal ascites. The right kidney is normal in appearance, measuring 11.1 cm. IMPRESSION: Diffusely increased hepatic echogenicity and heterogeneous echotexture, consistent with underlying fatty infiltration and/or hepatocellular disease. This limits sonographic sensitivity. Gallstones with circumferential gallbladder wall thickening and small pericholecystic fluid. Positive sonographic Yo sign, per the patient case manager. Findings are consistent with acute cholecystitis. Clinical correlation is recommended to confirm positive Yo sign on clinical exam. PE: GEN: NAD HEENT: Atraumatic, PERRL LUNGS: CTAB anteriorly HEART: RRR ABD: quiet, obese, soft, vaguely tender mid abdomen EXTREMITY: No edema SKIN: No rashes, no jaundice NEURO/PSYCH: A & O 3 A/P: A/P: Gallstone pancreatitis, ?cholecystitis Leukocytosis, elevated LFTs Fatty liver, dilated CBD (6mm) Suspect GERD, globus CRC screen - average risk COVID negative BMI 48.5 -- D/w Poornima/surgery - plans to check CT, await this. Recheck labs. Agree w/ NPO, IV PPI. Will need cholecystectomy/IOC, possible ERCP. RAFAEL CONCEPCION Sep 29, 2020 09:44
--- NOTE | 2020-09-29 09:46 | EKG ---
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
[2020-09-29 09:51] LABS: BILIRUBIN,URINE SMALL (NEG); CLARITY,URINE TURBID; COLOR,URINE AMBER; NITRITE,URINE NEGATIVE (NEG); PH,URINE 5.5 (<5.0-8.0); PROTEIN,URINE NEGATIVE (NEG-TRACE)
[2020-09-29 09:56] LABS: U PREG PATIENT NEGATIVE (NEG)
--- NOTE | 2020-09-29 09:58 | NUR ---
SW following. Discussed with RN, pt from home with family, room air, NPO, COVID-19 negative, bowel rest. GI and Surgery following - recommending cholecystectomy once pancreatitis is resolved. Med Assist following for self pay status. SW will continue to follow.
[2020-09-29] MEDS ORDERED: POTASSIUM CHLORIDE 20MEQ 100 ML IV ONE (10:00)
[2020-09-29 10:09] LABS: BASO % 0 % (0-3); EOS # 0.1 x10^3/uL (0.0-0.7); EOS % 1 % (0-3); HEMOGLOBIN 12.6 g/dL (12.0-15.5); LYMPH % 17 % (24-48); MEAN CORPUSCULAR HEMOGLOBIN 30 pg (25-35); MEAN CORPUSCULAR HGB CONC 33 g/dL (31-37); MEAN CORPUSCULAR VOLUME 92 fL (79-100); MONO # 0.5 x10^3/uL (0.0-1.1); MONO % 5 % (0-9); NEUT # 8.9 x10^3/uL (1.8-7.7); NEUT % 78 % (31-73); PLATELET COUNT 213 x10^3/uL (140-400); RED BLOOD COUNT 4.15 x10^6/uL (3.50-5.40); RED CELL DISTRIBUTION WIDTH 14.1 % (11.5-14.5); WHITE BLOOD COUNT 11.5 x10^3/uL (4.0-11.0)
[2020-09-29 10:09] LABS: BACTERIA,URINE MANY /HPF (0-FEW)
[2020-09-29 10:29] LABS: GFR 62.7; POTASSIUM 3.2 mmol/L (3.5-5.1)
[2020-09-29 10:35] LABS: DIRECT BILIRUBIN 0.7 mg/dL (0.0-0.2); TOTAL BILIRUBIN 1.3 mg/dL (0.2-1.0); TOTAL PROTEIN 7.5 g/dL (6.4-8.2)
[2020-09-29 11:00] VITALS: BP_SYST 115; BP_SYST 154; BP_DIAS 62; BP_DIAS 93
--- NOTE | 2020-09-29 11:04 | PDOC ---
[employer] PROGRESS NOTE Date of Service DOS: DATE: 09/29/20 TIME: 10:56 Chief Complaint Chief Complaint RUQ pain Acute cholecystitis Acute pancreatitis History of Present Illness History of Present Illness 09/29/2020 Patient seen and examined Resting comfortably in bed, reports RUQ pain, denies nausea Discussed with RN Discussed with protective services case worker Chart reviewed Vitals/I&O Vitals/I&O: Vital Signs Date Time Temp Pulse Resp B/P (MAP) Pulse Ox O2 Delivery O2 Flow Rate FiO2 09/29/20 07:31 Room Air 09/29/20 07:00 98.4 83 17 114/59 (77) 93 98.4 I & O 09/28/20 09/28/20 09/29/20 15:00 23:00 07:00 Intake Total 0 ml 1050 ml Balance 0 ml 1050 ml Physical Exam General: Alert, Oriented X3, Cooperative Heart: Regular rate, Normal S1, Normal S2, No murmurs Lungs: Clear, Other (No wheezes or crackles) Abdomen: Soft, Other (TTP upper abdomen ) Extremities: No clubbing, No cyanosis Skin: No rashes, No breakdown Labs Labs: Laboratory Tests Test 09/28/20 14:40 09/28/20 17:15 09/29/20 09:40 White Blood Count 13.2 x10^3/uL (4.0-11.0) 11.5 x10^3/uL (4.0-11.0) Red Blood Count 4.68 x10^6/uL (3.50-5.40) 4.15 x10^6/uL (3.50-5.40) Hemoglobin 14.3 g/dL (12.0-15.5) 12.6 g/dL (12.0-15.5) Hematocrit 42.6 % (36.0-47.0) 38.0 % (36.0-47.0) Mean Corpuscular Volume 91 fL (79-100) 92 fL (79-100) Mean Corpuscular Hemoglobin 31 pg (25-35) 30 pg (25-35) Mean Corpuscular Hemoglobin Concent 34 g/dL (31-37) 33 g/dL (31-37) Red Cell Distribution Width 13.7 % (11.5-14.5) 14.1 % (11.5-14.5) Platelet Count 240 x10^3/uL (140-400) 213 x10^3/uL (140-400) Neutrophils (%) (Auto) 81 % (31-73) 78 % (31-73) Lymphocytes (%) (Auto) 13 % (24-48) 17 % (24-48) Monocytes (%) (Auto) 5 % (0-9) 5 % (0-9) Eosinophils (%) (Auto) 0 % (0-3) 1 % (0-3) Basophils (%) (Auto) 1 % (0-3) 0 % (0-3) Neutrophils # (Auto) 10.8 x10^3/uL (1.8-7.7) 8.9 x10^3/uL (1.8-7.7) Lymphocytes # (Auto) 1.7 x10^3/uL (1.0-4.8) 2.0 x10^3/uL (1.0-4.8) Monocytes # (Auto) 0.6 x10^3/uL (0.0-1.1) 0.5 x10^3/uL (0.0-1.1) Eosinophils # (Auto) 0.0 x10^3/uL (0.0-0.7) 0.1 x10^3/uL (0.0-0.7) Basophils # (Auto) 0.1 x10^3/uL (0.0-0.2) 0.0 x10^3/uL (0.0-0.2) Sodium Level 137 mmol/L (136-145) 139 mmol/L (136-145) Potassium Level 3.4 mmol/L (3.5-5.1) 3.2 mmol/L (3.5-5.1) Chloride Level 100 mmol/L (98-107) 105 mmol/L (98-107) Carbon Dioxide Level 28 mmol/L (21-32) 27 mmol/L (21-32) Anion Gap 9 (6-14) 7 (6-14) Blood Urea Nitrogen 7 mg/dL (7-20) 11 mg/dL (7-20) Creatinine 0.8 mg/dL (0.6-1.0) 1.0 mg/dL (0.6-1.0) Estimated GFR (Cockcroft-Gault) 81.2 62.7 BUN/Creatinine Ratio 9 (6-20) Glucose Level 120 mg/dL (70-99) 87 mg/dL (70-99) Calcium Level 8.9 mg/dL (8.5-10.1) 8.0 mg/dL (8.5-10.1) Total Bilirubin 3.7 mg/dL (0.2-1.0) 1.3 mg/dL (0.2-1.0) Aspartate Amino Transf (AST/SGOT) 165 U/L (15-37) 75 U/L (15-37) Alanine Aminotransferase (ALT/SGPT) 213 U/L (14-59) 155 U/L (14-59) Alkaline Phosphatase 156 U/L (46-116) 135 U/L (46-116) Total Protein 8.5 g/dL (6.4-8.2) 7.5 g/dL (6.4-8.2) Albumin 3.4 g/dL (3.4-5.0) 3.0 g/dL (3.4-5.0) Albumin/Globulin Ratio 0.7 (1.0-1.7) Lipase 70917 U/L (73-393) 4314 U/L (73-393) SARS-CoV-2 RNA (AMEENA) Negative (Negative) SARS-CoV-2 Antigen (Rapid) Negative (NEGATIVE) Urine Test Negative (NEG) Direct Bilirubin 0.7 mg/dL (0.0-0.2) Review of Systems Review of Systems: Reports RUQ pain, denies nausea Assessment and Plan Assessmemt and Plan Assessment: RUQ pain Acute cholecystitis Acute pancreatitis (Lipase 24814) Leukocytosis (WBC 13) Plan: NPO IV fluids Trend lipase Zofran PRN for nausea PRN pain meds Continue IV Zosyn Surgery consulted, recommendations appreciated GI consulted, recommendations appreciated Home meds DVT prophylaxis Full code Comment Review of Relevant I have reviewed the following items jeff (where applicable) has been applied. Medications: Current Medications Medications (Trade) Dose Ordered Sig/Jitendra Route PRN Reason Start Time Stop Time Status Last Admin Dose Admin Sodium Chloride 1,000 ml @ 1,000 mls/hr 1X ONCE IV 09/28/20 13:30 09/28/20 14:29 DC 09/28/20 17:08 Fentanyl Citrate (Fentanyl 2ml Vial) 50 mcg 1X ONCE IVP 09/28/20 13:30 09/28/20 13:31 DC 09/28/20 17:10 Ondansetron HCl (Zofran) 4 mg 1X ONCE IVP 09/28/20 13:30 09/28/20 13:31 DC 09/28/20 17:10 Famotidine (Pepcid Vial) 20 mg 1X ONCE IVP 09/28/20 13:30 09/28/20 13:31 DC 09/28/20 17:10 Piperacillin Sod/ Tazobactam Sod 3.375 gm/Sodium Chloride 50 ml @ 100 mls/hr 1X ONCE IV 09/28/20 16:00 09/28/20 16:29 DC 09/28/20 18:28 Sodium Chloride 1,000 ml @ 125 mls/hr 1X ONCE IV 09/28/20 18:00 09/29/20 01:59 DC 09/28/20 18:28 Sodium Chloride 1,000 ml @ 100 mls/hr Q10H IV 09/28/20 20:15 09/29/20 03:26 Enoxaparin Sodium (Lovenox 40mg Syringe) 40 mg Q24H SQ 09/28/20 20:15 09/28/20 21:59 Piperacillin Sod/ Tazobactam Sod 3.375 gm/Sodium Chloride 50 ml @ 100 mls/hr Q6HRS IV 09/29/20 00:00 09/29/20 05:44 Pantoprazole Sodium (PROTONIX VIAL for IV PUSH) 40 mg DAILY08 IVP 09/28/20 20:15 09/29/20 07:56 Potassium Chloride/Water 100 ml @ 50 mls/hr 1X ONCE IV 09/29/20 10:00 09/29/20 11:59 09/29/20 09:16 Iohexol (Omnipaque 240 Mg/ml) 50 ml 1X ONCE PO 09/29/20 09:15 09/29/20 09:16 DC 09/29/20 09:15 Justifications for Admission General Conditions Other justification for admit: ACUTE CHOLECYSTITIS Other Justification JEANNINE BROWN III DO Sep 29, 2020 11:04
--- NOTE | 2020-09-29 11:45 | RAD ---
Exam Date: 09/29/2020 10:[address] ABDOMEN+PELVIS W Indication: Reason: pancreatitis / Spl. Instructions: INJ 75ML OMNI 300, 50ML OMNI 240 PO / History: TECHNIQUE: CT examination of the abdomen and pelvis was performed following the administration of or al and nonionic intravenous contrast. One or more of the following dose reduction techniques were ut ilized: *Automated exposure control (AEC) *Adjustment of mA and/or kV according to patient size *Use of iterative reconstruction technique *CT scan done according to ALARA, or ALARA/IMAGE GENTLY COMPARISON: Abdominal ultrasound from the previous day FINDINGS: Motion artifact limits evaluation. The visualized lung bases demonstrate mild subsegmental atelectasis and/or infiltrates. The gallbladder again demonstrates circumferential mural thickening suspicious for acute cholecystiti s. There is a small gallstone in the the gallbladder neck. The pancreas appears normal, with normal enhancement without significant peripancreatic fat stranding or fluid collections. Evaluation for pancreatic necrosis is suboptimal in the absence of arterial ph ase imaging. The liver, spleen, adrenal glands and kidneys are normal. Urinary bladder is normal in appearance. There is no bowel obstruction or inflammation. The appendix is normal. No significant atherosclerotic calcifications are seen. No lymphadenopathy or ascites is seen. Degenerative changes are seen in the spine. IMPRESSION: Findings suggesting acute cholecystitis are again seen, including a small gallstone in the gallbladde r neck with circumferential mural thickening of the gallbladder. No CT evidence of pancreatitis or complications related to acute pancreatitis, though evaluation of t he pancreas is slightly limited in the absence of arterial phase imaging. Electronically signed by: Toni Carreno MD (09/29/2020 11:43 AM) [id number]
[2020-09-29 15:00] VITALS: BP 141/88
[2020-09-29 19:42] VITALS: BP 152/98
[2020-09-29] MEDS: ENOXAPARIN 40 MG/0.4 ML SYRINGE. SQ SCH (20:40)
[2020-09-29 23:25] VITALS: BP 158/96
[2020-09-30] MEDS: PIPERACILLIN/TAZOBACTAM 3.375 GM in IV NORMAL SALINE 50ML 50 ML IV SCH ×4 (00:10→18:21)
[2020-09-30] MEDS: IV NORMAL SALINE 1000ML BAG 1,000 ML IV SCH ×2 (02:09→12:06)
[2020-09-30 03:51] VITALS: BP 128/81
[2020-09-30 07:00] VITALS: BP 150/73
[2020-09-30 07:44] LABS: ALBUMIN 2.9 g/dL (3.4-5.0); DIRECT BILIRUBIN 0.5 mg/dL (0.0-0.2); TOTAL BILIRUBIN 1.1 mg/dL (0.2-1.0); TOTAL PROTEIN 7.5 g/dL (6.4-8.2)
[2020-09-30] MEDS: PANTOPRAZOLE IV PUSH 40 MG VIAL. IVP SCH (08:50)
--- NOTE | 2020-09-30 10:42 | PDOC ---
PROGRESS NOTES Date of Service DATE: 09/30/20 TIME: 10:41 Subjective Subjective some upper abdominal pain, a bit better than previously Objective Objective Vital Signs Date Time Temp Pulse Resp B/P (MAP) Pulse Ox O2 Delivery O2 Flow Rate FiO2 09/30/20 07:00 99.3 75 18 150/73 (98) 93 Room Air 99.3 Intake and Output 09/30/20 07:00 Intake Total 380 ml Balance 380 ml Intake Oral 380 ml # Voids 1 Physical Exam Abdomen: Soft (tender upper mid abdomen) General: Alert, Oriented X3, Cooperative HEENT: Atraumatic Lungs: Clear to auscultation Neck: Supple Neuro: Normal speech Assessment Assessment Problems Medical Problems: (1) Acute cholecystitis Status: Acute (2) Acute pancreatitis Status: Acute (3) Cholecystitis Status: Acute Plan Plan of Care Continue supportive care, hydration, pain control, bowel rest; lap gris when pancreatitis improves, suspect after the weekend Comment Review of Relevant I have reviewed the following items jeff (where applicable) has been applied. Labs Laboratory Tests Test 09/28/20 14:40 09/28/20 17:15 09/29/20 09:40 09/30/20 06:30 White Blood Count 13.2 x10^3/uL (4.0-11.0) 11.5 x10^3/uL (4.0-11.0) Red Blood Count 4.68 x10^6/uL (3.50-5.40) 4.15 x10^6/uL (3.50-5.40) Hemoglobin 14.3 g/dL (12.0-15.5) 12.6 g/dL (12.0-15.5) Hematocrit 42.6 % (36.0-47.0) 38.0 % (36.0-47.0) Mean Corpuscular Volume 91 fL (79-100) 92 fL (79-100) Mean Corpuscular Hemoglobin 31 pg (25-35) 30 pg (25-35) Mean Corpuscular Hemoglobin Concent 34 g/dL (31-37) 33 g/dL (31-37) Red Cell Distribution Width 13.7 % (11.5-14.5) 14.1 % (11.5-14.5) Platelet Count 240 x10^3/uL (140-400) 213 x10^3/uL (140-400) Neutrophils (%) (Auto) 81 % (31-73) 78 % (31-73) Lymphocytes (%) (Auto) 13 % (24-48) 17 % (24-48) Monocytes (%) (Auto) 5 % (0-9) 5 % (0-9) Eosinophils (%) (Auto) 0 % (0-3) 1 % (0-3) Basophils (%) (Auto) 1 % (0-3) 0 % (0-3) Neutrophils # (Auto) 10.8 x10^3/uL (1.8-7.7) 8.9 x10^3/uL (1.8-7.7) Lymphocytes # (Auto) 1.7 x10^3/uL (1.0-4.8) 2.0 x10^3/uL (1.0-4.8) Monocytes # (Auto) 0.6 x10^3/uL (0.0-1.1) 0.5 x10^3/uL (0.0-1.1) Eosinophils # (Auto) 0.0 x10^3/uL (0.0-0.7) 0.1 x10^3/uL (0.0-0.7) Basophils # (Auto) 0.1 x10^3/uL (0.0-0.2) 0.0 x10^3/uL (0.0-0.2) Sodium Level 137 mmol/L (136-145) 139 mmol/L (136-145) Potassium Level 3.4 mmol/L (3.5-5.1) 3.2 mmol/L (3.5-5.1) Chloride Level 100 mmol/L (98-107) 105 mmol/L (98-107) Carbon Dioxide Level 28 mmol/L (21-32) 27 mmol/L (21-32) Anion Gap 9 (6-14) 7 (6-14) Blood Urea Nitrogen 7 mg/dL (7-20) 11 mg/dL (7-20) Creatinine 0.8 mg/dL (0.6-1.0) 1.0 mg/dL (0.6-1.0) Estimated GFR (Cockcroft-Gault) 81.2 62.7 BUN/Creatinine Ratio 9 (6-20) Glucose Level 120 mg/dL (70-99) 87 mg/dL (70-99) Calcium Level 8.9 mg/dL (8.5-10.1) 8.0 mg/dL (8.5-10.1) Total Bilirubin 3.7 mg/dL (0.2-1.0) 1.3 mg/dL (0.2-1.0) 1.1 mg/dL (0.2-1.0) Aspartate Amino Transf (AST/SGOT) 165 U/L (15-37) 75 U/L (15-37) 44 U/L (15-37) Alanine Aminotransferase (ALT/SGPT) 213 U/L (14-59) 155 U/L (14-59) 110 U/L (14-59) Alkaline Phosphatase 156 U/L (46-116) 135 U/L (46-116) 122 U/L (46-116) Total Protein 8.5 g/dL (6.4-8.2) 7.5 g/dL (6.4-8.2) 7.5 g/dL (6.4-8.2) Albumin 3.4 g/dL (3.4-5.0) 3.0 g/dL (3.4-5.0) 2.9 g/dL (3.4-5.0) Albumin/Globulin Ratio 0.7 (1.0-1.7) Lipase 73086 U/L (73-393) 4314 U/L (73-393) 1015 U/L (73-393) SARS-CoV-2 RNA (AMEENA) Negative (Negative) SARS-CoV-2 Antigen (Rapid) Negative (NEGATIVE) Urine Test Negative (NEG) Direct Bilirubin 0.7 mg/dL (0.0-0.2) 0.5 mg/dL (0.0-0.2) Laboratory Tests Test 09/30/20 06:30 Total Bilirubin 1.1 mg/dL (0.2-1.0) Direct Bilirubin 0.5 mg/dL (0.0-0.2) Aspartate Amino Transf (AST/SGOT) 44 U/L (15-37) Alanine Aminotransferase (ALT/SGPT) 110 U/L (14-59) Alkaline Phosphatase 122 U/L (46-116) Total Protein 7.5 g/dL (6.4-8.2) Albumin 2.9 g/dL (3.4-5.0) Lipase 1015 U/L (73-393) Microbiology 09/29/20 Urine Culture - Final, Complete Medications Current Medications Sodium Chloride 1,000 ml @ 1,000 mls/hr 1X ONCE IV Last administered on 09/28/20at 17:08; Start 09/28/20 at 13:30; Stop 09/28/20 at 14:29; Status DC Fentanyl Citrate (Fentanyl 2ml Vial) 50 mcg 1X ONCE IVP Last administered on 09/28/20at 17:10; Start 09/28/20 at 13:30; Stop 09/28/20 at 13:31; Status DC Ondansetron HCl (Zofran) 4 mg 1X ONCE IVP Last administered on 09/28/20at 17:10; Start 09/28/20 at 13:30; Stop 09/28/20 at 13:31; Status DC Famotidine (Pepcid Vial) 20 mg 1X ONCE IVP Last administered on 09/28/20at 17:10; Start 09/28/20 at 13:30; Stop 09/28/20 at 13:31; Status DC Piperacillin Sod/ Tazobactam Sod 3.375 gm/Sodium Chloride 50 ml @ 100 mls/hr 1X ONCE IV Last administered on 09/28/20at 18:28; Start 09/28/20 at 16:00; Stop 09/28/20 at 16:29; Status DC Ondansetron HCl (Zofran) 4 mg PRN Q8HRS PRN IV NAUSEA/VOMITING; Start 09/28/20 at 18:00; Stop 09/29/20 at 12:30; Status DC Fentanyl Citrate (Fentanyl 2ml Vial) 50 mcg PRN Q1HR PRN IV PAIN; Start 09/28/20 at 18:00; Stop 09/29/20 at 17:59; Status DC Sodium Chloride 1,000 ml @ 125 mls/hr 1X ONCE IV Last administered on 09/28/20at 18:28; Start 09/28/20 at 18:00; Stop 09/29/20 at 01:59; Status DC Sodium Chloride (Normal Saline Flush) 3 ml QSHIFT PRN IV AFTER MEDS AND BLOOD DRAWS; Start 09/28/20 at 20:15 Sodium Chloride 1,000 ml @ 100 mls/hr Q10H IV Last administered on 09/30/20at 02:09; Start 09/28/20 at 20:15 Ondansetron HCl (Zofran) 4 mg PRN Q4HRS PRN IV NAUSEA/VOMITING; Start 09/28/20 at 20:15 Acetaminophen (Tylenol) 650 mg PRN Q4HRS PRN PO TEMP OVER 100.4F OR MILD PAIN; Start 09/28/20 at 20:15 Acetaminophen (Tylenol Supp) 650 mg PRN Q4HRS PRN NV TEMP OVER 100.4F OR MILD PAIN; Start 09/28/20 at 20:15 Clonidine HCl (Catapres) 0.1 mg PRN Q6HRS PRN PO SBP>160 OR DBP>90; Start 09/28/20 at 20:15 Sodium Monofluorophosphate (Fleet Adult) 133 ml PRN DAILY PRN NV CONSTIPATION; Start 09/28/20 at 20:15 Docusate Sodium (Colace) 100 mg PRN BID PRN PO HARD STOOLS; Start 09/28/20 at 20:15 Albuterol Sulfate (Ventolin Neb Soln) 2.5 mg PRN Q4HRS PRN NEB SHORTNESS OF BREATH; Start 09/28/20 at 20:15 Guaifenesin (Robitussin) 200 mg PRN Q4HRS PRN PO COUGH; Start 09/28/20 at 20:15 Lorazepam (Ativan) 0.5 mg PRN Q4HRS PRN PO ANXIETY / AGITATION; Start 09/28/20 at 20:15 Hydromorphone HCl (Dilaudid) 0.5 mg PRN Q2HRS PRN IV SEVERE PAIN 7-10; Start 09/28/20 at 20:15 Enoxaparin Sodium (Lovenox 40mg Syringe) 40 mg Q24H SQ Last administered on 09/29/20at 20:40; Start 09/28/20 at 20:15 Piperacillin Sod/ Tazobactam Sod 3.375 gm/Sodium Chloride 50 ml @ 100 mls/hr Q6HRS IV Last administered on 09/30/20at 05:30; Start 09/29/20 at 00:00 Pantoprazole Sodium (PROTONIX VIAL for IV PUSH) 40 mg DAILY08 IVP Last administered on 09/30/20at 08:50; Start 09/28/20 at 20:15 Hydralazine HCl (Apresoline Inj) 10 mg PRN Q4HRS PRN IVP ELEVATED BP, SEE COMMENTS; Start 09/28/20 at 20:15 Potassium Chloride/Water 100 ml @ 50 mls/hr 1X ONCE IV Last administered on 09/29/20at 09:16; Start 09/29/20 at 10:00; Stop 09/29/20 at 11:59; Status DC Iohexol (Omnipaque 300 Mg/ml) 75 ml 1X ONCE IV Last administered on 09/29/20at 10:44; Start 09/29/20 at 09:15; Stop 09/29/20 at 09:16; Status DC Iohexol (Omnipaque 240 Mg/ml) 50 ml 1X ONCE PO Last administered on 09/29/20at 09:15; Start 09/29/20 at 09:15; Stop 09/29/20 at 09:16; Status DC Info (CONTRAST GIVEN -- Rx MONITORING) 1 each PRN DAILY PRN MC SEE COMMENTS; Start 09/29/20 at 09:15; Stop 10/01/20 at 09:14 Active Scripts Active Prednisone 20 Mg Tablet 20 Mg PO DAILY Vitals/I & O Vital Sign - Last 24 Hours 09/29/20 09/29/20 09/29/20 09/29/20 11:00 15:00 19:42 19:50 Temp 98.2 99.3 99.5 98.2 99.3 99.5 Pulse 78 78 77 Resp 18 17 16 B/P (MAP) 154/93 (113) 141/88 (105) 152/98 (116) Pulse Ox 93 93 95 O2 Delivery Room Air Room Air Room Air Room Air 09/29/20 09/30/20 09/30/20 23:25 03:51 07:00 Temp 98.9 98.9 99.3 98.9 98.9 99.3 Pulse 78 87 75 Resp 20 18 18 B/P (MAP) 158/96 (116) 128/81 (97) 150/73 (98) Pulse Ox 98 96 93 O2 Delivery Room Air Room Air Room Air Intake and Output 09/29/20 09/29/20 09/30/20 15:00 23:00 07:00 Intake Total 0 ml 180 ml 200 ml Balance 0 ml 180 ml 200 ml Justifications for Admission General Conditions Other justification for admit: ACUTE CHOLECYSTITIS Other Justification JASON RODRIGUEZ MD Sep 30, 2020 10:42
[2020-09-30 11:00] VITALS: BP 160/100
--- NOTE | 2020-09-30 13:08 | PDOC ---
GENERAL General: Patient examined chart reviewed today's hospital day 3 for this patient with ac [place] cholecystitis complicated by gallstone pancreatitis. We appreciate surgery input. Plan is for cholecystectomy early next week once her pancreatitis is improved with expectant management. Patient is without complaint this afternoon tells me her pain is managed. Problems: (1) Acute cholecystitis (2) Acute pancreatitis (3) Morbid obesity VITAL SIGNS Vital Signs/I&O: Vital Signs Date Time Temp Pulse Resp B/P (MAP) Pulse Ox O2 Delivery O2 Flow Rate FiO2 09/30/20 11:00 98.7 85 18 160/100 (120) 96 Room Air 98.7 I & O 09/29/20 09/29/20 09/30/20 15:00 23:00 07:00 Intake Total 0 ml 180 ml 200 ml Balance 0 ml 180 ml 200 ml In general the patient is pleasant alert and oriented x3 no acute distress HEENT exam is unremarkable Chest is clear to auscultation Heart S1-S2 normal regular rate and rhythm no murmurs or gallops are noted Abdomen soft nontender nondistended no masses organomegaly noted Extremity exam is unremarkable for acute abnormality ALLERGIES Allergies: Allergies Coded Allergies Type Severity Reaction Last Updated Verified No Known Drug Allergies 09/28/20 No MEDS Medications: Current Medications Medications (Trade) Dose Ordered Sig/Jitendra Start Time Stop Time Status Last Admin Dose Admin Acetaminophen (Tylenol Supp) 650 mg PRN Q4HRS PRN 09/28/20 20:15 Acetaminophen (Tylenol) 650 mg PRN Q4HRS PRN 09/28/20 20:15 Albuterol Sulfate (Ventolin Neb Soln) 2.5 mg PRN Q4HRS PRN 09/28/20 20:15 Clonidine HCl (Catapres) 0.1 mg PRN Q6HRS PRN 09/28/20 20:15 Docusate Sodium (Colace) 100 mg PRN BID PRN 09/28/20 20:15 Enoxaparin Sodium (Lovenox 40mg Syringe) 40 mg Q24H 09/28/20 20:15 09/29/20 20:40 Famotidine (Pepcid Vial) 20 mg 1X ONCE 09/28/20 13:30 09/28/20 13:31 DC 09/28/20 17:10 Fentanyl Citrate (Fentanyl 2ml Vial) 50 mcg PRN Q1HR PRN 09/28/20 18:00 09/29/20 17:59 DC Guaifenesin (Robitussin) 200 mg PRN Q4HRS PRN 09/28/20 20:15 Hydralazine HCl (Apresoline Inj) 10 mg PRN Q4HRS PRN 09/28/20 20:15 Hydromorphone HCl (Dilaudid) 0.5 mg PRN Q2HRS PRN 09/28/20 20:15 Info (CONTRAST GIVEN -- Rx MONITORING) 1 each PRN DAILY PRN 09/29/20 09:15 10/01/20 09:14 Iohexol (Omnipaque 240 Mg/ml) 50 ml 1X ONCE 09/29/20 09:15 09/29/20 09:16 DC 09/29/20 09:15 Iohexol (Omnipaque 300 Mg/ml) 75 ml 1X ONCE 09/29/20 09:15 09/29/20 09:16 DC 09/29/20 10:44 Lorazepam (Ativan) 0.5 mg PRN Q4HRS PRN 09/28/20 20:15 Ondansetron HCl (Zofran) 4 mg PRN Q4HRS PRN 09/28/20 20:15 Pantoprazole Sodium (PROTONIX VIAL for IV PUSH) 40 mg DAILY08 09/28/20 20:15 09/30/20 08:50 Piperacillin Sod/ Tazobactam Sod 3.375 gm/Sodium Chloride 50 ml @ 100 mls/hr Q6HRS 09/29/20 00:00 09/30/20 12:06 Potassium Chloride/Water 100 ml @ 50 mls/hr 1X ONCE 09/29/20 10:00 09/29/20 11:59 DC 09/29/20 09:16 Sodium Monofluorophosphate (Fleet Adult) 133 ml PRN DAILY PRN 09/28/20 20:15 Sodium Chloride 1,000 ml @ 100 mls/hr Q10H 09/28/20 20:15 09/30/20 12:06 Sodium Chloride (Normal Saline Flush) 3 ml QSHIFT PRN 09/28/20 20:15 LAB Lab: Laboratory Tests Test 09/30/20 06:30 Total Bilirubin 1.1 mg/dL (0.2-1.0) H Direct Bilirubin 0.5 mg/dL (0.0-0.2) H Aspartate Amino Transferase (AST) 44 U/L (15-37) H Alanine Aminotransferase (ALT) 110 U/L (14-59) H Alkaline Phosphatase 122 U/L (46-116) H Total Protein 7.5 g/dL (6.4-8.2) Albumin 2.9 g/dL (3.4-5.0) L Lipase 1015 U/L (73-393) H ASSESSMENT & PLAN A&P Plan as noted above This note was created using [employer] and may have omissions and/or errors due 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 Justifications for Admission General Conditions Other justification for admit: ACUTE CHOLECYSTITIS Other Justification Problem Qualifiers (1) Acute pancreatitis: Pancreatitis type: unspecified pancreatitis type Acute pancreatitis complication: unspecified Qualified Codes: K85.90 - Acute pancreatitis without necrosis or infection, unspecified TINA CLAROS MD Sep 30, 2020 13:08
--- NOTE | 2020-09-30 13:42 | PDOC ---
G I PROGRESS NOTE Subjective Still with some pain RUQ. Physical Exam Lungs clear anteriorly. RRR Abdomen mildly tender RUQ. Review of Relevant I have reviewed the following items jeff (where applicable) has been applied. Labs Laboratory Tests Test 09/28/20 14:40 09/28/20 17:15 09/29/20 09:40 09/30/20 06:30 White Blood Count 13.2 x10^3/uL (4.0-11.0) 11.5 x10^3/uL (4.0-11.0) Red Blood Count 4.68 x10^6/uL (3.50-5.40) 4.15 x10^6/uL (3.50-5.40) Hemoglobin 14.3 g/dL (12.0-15.5) 12.6 g/dL (12.0-15.5) Hematocrit 42.6 % (36.0-47.0) 38.0 % (36.0-47.0) Mean Corpuscular Volume 91 fL (79-100) 92 fL (79-100) Mean Corpuscular Hemoglobin 31 pg (25-35) 30 pg (25-35) Mean Corpuscular Hemoglobin Concent 34 g/dL (31-37) 33 g/dL (31-37) Red Cell Distribution Width 13.7 % (11.5-14.5) 14.1 % (11.5-14.5) Platelet Count 240 x10^3/uL (140-400) 213 x10^3/uL (140-400) Neutrophils (%) (Auto) 81 % (31-73) 78 % (31-73) Lymphocytes (%) (Auto) 13 % (24-48) 17 % (24-48) Monocytes (%) (Auto) 5 % (0-9) 5 % (0-9) Eosinophils (%) (Auto) 0 % (0-3) 1 % (0-3) Basophils (%) (Auto) 1 % (0-3) 0 % (0-3) Neutrophils # (Auto) 10.8 x10^3/uL (1.8-7.7) 8.9 x10^3/uL (1.8-7.7) Lymphocytes # (Auto) 1.7 x10^3/uL (1.0-4.8) 2.0 x10^3/uL (1.0-4.8) Monocytes # (Auto) 0.6 x10^3/uL (0.0-1.1) 0.5 x10^3/uL (0.0-1.1) Eosinophils # (Auto) 0.0 x10^3/uL (0.0-0.7) 0.1 x10^3/uL (0.0-0.7) Basophils # (Auto) 0.1 x10^3/uL (0.0-0.2) 0.0 x10^3/uL (0.0-0.2) Sodium Level 137 mmol/L (136-145) 139 mmol/L (136-145) Potassium Level 3.4 mmol/L (3.5-5.1) 3.2 mmol/L (3.5-5.1) Chloride Level 100 mmol/L (98-107) 105 mmol/L (98-107) Carbon Dioxide Level 28 mmol/L (21-32) 27 mmol/L (21-32) Anion Gap 9 (6-14) 7 (6-14) Blood Urea Nitrogen 7 mg/dL (7-20) 11 mg/dL (7-20) Creatinine 0.8 mg/dL (0.6-1.0) 1.0 mg/dL (0.6-1.0) Estimated GFR (Cockcroft-Gault) 81.2 62.7 BUN/Creatinine Ratio 9 (6-20) Glucose Level 120 mg/dL (70-99) 87 mg/dL (70-99) Calcium Level 8.9 mg/dL (8.5-10.1) 8.0 mg/dL (8.5-10.1) Total Bilirubin 3.7 mg/dL (0.2-1.0) 1.3 mg/dL (0.2-1.0) 1.1 mg/dL (0.2-1.0) Aspartate Amino Transf (AST/SGOT) 165 U/L (15-37) 75 U/L (15-37) 44 U/L (15-37) Alanine Aminotransferase (ALT/SGPT) 213 U/L (14-59) 155 U/L (14-59) 110 U/L (14-59) Alkaline Phosphatase 156 U/L (46-116) 135 U/L (46-116) 122 U/L (46-116) Total Protein 8.5 g/dL (6.4-8.2) 7.5 g/dL (6.4-8.2) 7.5 g/dL (6.4-8.2) Albumin 3.4 g/dL (3.4-5.0) 3.0 g/dL (3.4-5.0) 2.9 g/dL (3.4-5.0) Albumin/Globulin Ratio 0.7 (1.0-1.7) Lipase 44281 U/L (73-393) 4314 U/L (73-393) 1015 U/L (73-393) SARS-CoV-2 RNA (AMEENA) Negative (Negative) SARS-CoV-2 Antigen (Rapid) Negative (NEGATIVE) Urine Test Negative (NEG) Direct Bilirubin 0.7 mg/dL (0.0-0.2) 0.5 mg/dL (0.0-0.2) Laboratory Tests Test 09/30/20 06:30 Total Bilirubin 1.1 mg/dL (0.2-1.0) Direct Bilirubin 0.5 mg/dL (0.0-0.2) Aspartate Amino Transf (AST/SGOT) 44 U/L (15-37) Alanine Aminotransferase (ALT/SGPT) 110 U/L (14-59) Alkaline Phosphatase 122 U/L (46-116) Total Protein 7.5 g/dL (6.4-8.2) Albumin 2.9 g/dL (3.4-5.0) Lipase 1015 U/L (73-393) Microbiology 09/29/20 Urine Culture - Final, Complete LFT's, lipase continue to improve. Vitals/I & O Vital Sign - Last 24 Hours 09/29/20 09/29/20 09/29/20 09/29/20 15:00 19:42 19:50 23:25 Temp 99.3 99.5 98.9 99.3 99.5 98.9 Pulse 78 77 78 Resp 17 16 20 B/P (MAP) 141/88 (105) 152/98 (116) 158/96 (116) Pulse Ox 93 95 98 O2 Delivery Room Air Room Air Room Air Room Air 09/30/20 09/30/20 09/30/20 09/30/20 03:51 07:00 08:00 11:00 Temp 98.9 99.3 98.7 98.9 99.3 98.7 Pulse 87 75 85 Resp 18 18 18 B/P (MAP) 128/81 (97) 150/73 (98) 160/100 (120) Pulse Ox 96 93 96 O2 Delivery Room Air Room Air Room Air Room Air Intake and Output 09/29/20 09/29/20 09/30/20 15:00 23:00 07:00 Intake Total 0 ml 180 ml 200 ml Balance 0 ml 180 ml 200 ml Problem List Problems Medical Problems: (1) Acute cholecystitis Status: Acute (2) Acute pancreatitis Status: Acute (3) Cholecystitis Status: Acute Assessment Gallstone pancreatitis, improving. Numbers c/w passage of offending stone. Cholecystitis. Plan of Care: Continue current Tx, Mgmt Plan of Care Note When feasible, gris with IOC. Justicifation of Admission Dx: Justifications for Admission: Justification of Admission Dx: Yes Comments: NPO OTIS ASIF MD Sep 30, 2020 13:42
[2020-09-30 15:00] VITALS: BP 179/94
[2020-09-30 19:00] VITALS: BP 152/88
[2020-09-30] MEDS: ENOXAPARIN 40 MG/0.4 ML SYRINGE. SQ SCH (20:41)
[2020-09-30 23:00] VITALS: BP 166/96
[2020-10-01] MEDS: IV NORMAL SALINE 1000ML BAG 1,000 ML IV SCH ×3 (00:08→18:30)
[2020-10-01] MEDS: PIPERACILLIN/TAZOBACTAM 3.375 GM in IV NORMAL SALINE 50ML 50 ML IV SCH ×5 (00:09→23:59)
[2020-10-01 03:00] VITALS: BP 167/87
[2020-10-01 07:00] VITALS: BP 138/72
[2020-10-01 07:30] LABS: BASO % 0 % (0-3); EOS # 0.1 x10^3/uL (0.0-0.7); EOS % 0 % (0-3); HEMATOCRIT 36.2 % (36.0-47.0); HEMOGLOBIN 12.2 g/dL (12.0-15.5); LYMPH # 2.2 x10^3/uL (1.0-4.8); LYMPH % 15 % (24-48); MEAN CORPUSCULAR HEMOGLOBIN 31 pg (25-35); MEAN CORPUSCULAR HGB CONC 34 g/dL (31-37); MEAN CORPUSCULAR VOLUME 92 fL (79-100); MONO # 0.8 x10^3/uL (0.0-1.1); MONO % 6 % (0-9); NEUT % 78 % (31-73); PLATELET COUNT 205 x10^3/uL (140-400); RED BLOOD COUNT 3.94 x10^6/uL (3.50-5.40); RED CELL DISTRIBUTION WIDTH 13.7 % (11.5-14.5); WHITE BLOOD COUNT 14.1 x10^3/uL (4.0-11.0)
[2020-10-01 07:54] LABS: ALBUMIN 2.7 g/dL (3.4-5.0); ALBUMIN/GLOBULIN RATIO 0.6 (1.0-1.7); CALCIUM 8.1 mg/dL (8.5-10.1); CREATININE 0.8 mg/dL (0.6-1.0); GFR 81.2; POTASSIUM 3.3 mmol/L (3.5-5.1); TOTAL BILIRUBIN 0.9 mg/dL (0.2-1.0); TOTAL PROTEIN 7.6 g/dL (6.4-8.2)
[2020-10-01] MEDS: PANTOPRAZOLE IV PUSH 40 MG VIAL. IVP SCH (08:24)
[2020-10-01] MEDS: ENOXAPARIN 40 MG/0.4 ML SYRINGE. SQ SCH ×2 (08:28→21:22)
--- NOTE | 2020-10-01 10:21 | PDOC ---
PROGRESS NOTES Date of Service DATE: 10/01/20 TIME: 10:19 Subjective Subjective feels well, no more pain Objective Objective Vital Signs Date Time Temp Pulse Resp B/P (MAP) Pulse Ox O2 Delivery O2 Flow Rate FiO2 10/01/20 07:00 98.6 81 18 138/72 (94) 93 Room Air 98.6 Intake and Output 10/01/20 07:00 Intake Total 0 ml Balance 0 ml Tube Feeding 0 ml Physical Exam Abdomen: Soft, No tenderness Heart: Regular rate Extremities: No clubbing General: Alert, Oriented X3 HEENT: Atraumatic Assessment Assessment Problems Medical Problems: (1) Acute cholecystitis Status: Acute (2) Acute pancreatitis Status: Acute (3) Cholecystitis Status: Acute Plan Plan of Care Clinically improved, lipase coming down; continue present therapy, suspect will be ready for lap gris in next couple of days, Dr Balderrama to return tomorrow Comment Review of Relevant I have reviewed the following items jeff (where applicable) has been applied. Labs Laboratory Tests Test 09/30/20 06:30 10/01/20 06:05 Total Bilirubin 1.1 mg/dL (0.2-1.0) 0.9 mg/dL (0.2-1.0) Direct Bilirubin 0.5 mg/dL (0.0-0.2) Aspartate Amino Transf (AST/SGOT) 44 U/L (15-37) 36 U/L (15-37) Alanine Aminotransferase (ALT/SGPT) 110 U/L (14-59) 86 U/L (14-59) Alkaline Phosphatase 122 U/L (46-116) 122 U/L (46-116) Total Protein 7.5 g/dL (6.4-8.2) 7.6 g/dL (6.4-8.2) Albumin 2.9 g/dL (3.4-5.0) 2.7 g/dL (3.4-5.0) Lipase 1015 U/L (73-393) 632 U/L (73-393) White Blood Count 14.1 x10^3/uL (4.0-11.0) Red Blood Count 3.94 x10^6/uL (3.50-5.40) Hemoglobin 12.2 g/dL (12.0-15.5) Hematocrit 36.2 % (36.0-47.0) Mean Corpuscular Volume 92 fL (79-100) Mean Corpuscular Hemoglobin 31 pg (25-35) Mean Corpuscular Hemoglobin Concent 34 g/dL (31-37) Red Cell Distribution Width 13.7 % (11.5-14.5) Platelet Count 205 x10^3/uL (140-400) Neutrophils (%) (Auto) 78 % (31-73) Lymphocytes (%) (Auto) 15 % (24-48) Monocytes (%) (Auto) 6 % (0-9) Eosinophils (%) (Auto) 0 % (0-3) Basophils (%) (Auto) 0 % (0-3) Neutrophils # (Auto) 11.0 x10^3/uL (1.8-7.7) Lymphocytes # (Auto) 2.2 x10^3/uL (1.0-4.8) Monocytes # (Auto) 0.8 x10^3/uL (0.0-1.1) Eosinophils # (Auto) 0.1 x10^3/uL (0.0-0.7) Basophils # (Auto) 0.0 x10^3/uL (0.0-0.2) Sodium Level 135 mmol/L (136-145) Potassium Level 3.3 mmol/L (3.5-5.1) Chloride Level 100 mmol/L (98-107) Carbon Dioxide Level 25 mmol/L (21-32) Anion Gap 10 (6-14) Blood Urea Nitrogen 8 mg/dL (7-20) Creatinine 0.8 mg/dL (0.6-1.0) Estimated GFR (Cockcroft-Gault) 81.2 BUN/Creatinine Ratio 10 (6-20) Glucose Level 63 mg/dL (70-99) Calcium Level 8.1 mg/dL (8.5-10.1) Albumin/Globulin Ratio 0.6 (1.0-1.7) Laboratory Tests Test 10/01/20 06:05 White Blood Count 14.1 x10^3/uL (4.0-11.0) Red Blood Count 3.94 x10^6/uL (3.50-5.40) Hemoglobin 12.2 g/dL (12.0-15.5) Hematocrit 36.2 % (36.0-47.0) Mean Corpuscular Volume 92 fL (79-100) Mean Corpuscular Hemoglobin 31 pg (25-35) Mean Corpuscular Hemoglobin Concent 34 g/dL (31-37) Red Cell Distribution Width 13.7 % (11.5-14.5) Platelet Count 205 x10^3/uL (140-400) Neutrophils (%) (Auto) 78 % (31-73) Lymphocytes (%) (Auto) 15 % (24-48) Monocytes (%) (Auto) 6 % (0-9) Eosinophils (%) (Auto) 0 % (0-3) Basophils (%) (Auto) 0 % (0-3) Neutrophils # (Auto) 11.0 x10^3/uL (1.8-7.7) Lymphocytes # (Auto) 2.2 x10^3/uL (1.0-4.8) Monocytes # (Auto) 0.8 x10^3/uL (0.0-1.1) Eosinophils # (Auto) 0.1 x10^3/uL (0.0-0.7) Basophils # (Auto) 0.0 x10^3/uL (0.0-0.2) Sodium Level 135 mmol/L (136-145) Potassium Level 3.3 mmol/L (3.5-5.1) Chloride Level 100 mmol/L (98-107) Carbon Dioxide Level 25 mmol/L (21-32) Anion Gap 10 (6-14) Blood Urea Nitrogen 8 mg/dL (7-20) Creatinine 0.8 mg/dL (0.6-1.0) Estimated GFR (Cockcroft-Gault) 81.2 BUN/Creatinine Ratio 10 (6-20) Glucose Level 63 mg/dL (70-99) Calcium Level 8.1 mg/dL (8.5-10.1) Total Bilirubin 0.9 mg/dL (0.2-1.0) Aspartate Amino Transf (AST/SGOT) 36 U/L (15-37) Alanine Aminotransferase (ALT/SGPT) 86 U/L (14-59) Alkaline Phosphatase 122 U/L (46-116) Total Protein 7.6 g/dL (6.4-8.2) Albumin 2.7 g/dL (3.4-5.0) Albumin/Globulin Ratio 0.6 (1.0-1.7) Lipase 632 U/L (73-393) Microbiology 09/29/20 Urine Culture - Final, Complete Medications Current Medications Sodium Chloride 1,000 ml @ 1,000 mls/hr 1X ONCE IV Last administered on 09/28/20at 17:08; Start 09/28/20 at 13:30; Stop 09/28/20 at 14:29; Status DC Fentanyl Citrate (Fentanyl 2ml Vial) 50 mcg 1X ONCE IVP Last administered on 09/28/20at 17:10; Start 09/28/20 at 13:30; Stop 09/28/20 at 13:31; Status DC Ondansetron HCl (Zofran) 4 mg 1X ONCE IVP Last administered on 09/28/20at 17:10; Start 09/28/20 at 13:30; Stop 09/28/20 at 13:31; Status DC Famotidine (Pepcid Vial) 20 mg 1X ONCE IVP Last administered on 09/28/20at 17:10; Start 09/28/20 at 13:30; Stop 09/28/20 at 13:31; Status DC Piperacillin Sod/ Tazobactam Sod 3.375 gm/Sodium Chloride 50 ml @ 100 mls/hr 1X ONCE IV Last administered on 09/28/20at 18:28; Start 09/28/20 at 16:00; Stop 09/28/20 at 16:29; Status DC Ondansetron HCl (Zofran) 4 mg PRN Q8HRS PRN IV NAUSEA/VOMITING; Start 09/28/20 at 18:00; Stop 09/29/20 at 12:30; Status DC Fentanyl Citrate (Fentanyl 2ml Vial) 50 mcg PRN Q1HR PRN IV PAIN; Start 09/28/20 at 18:00; Stop 09/29/20 at 17:59; Status DC Sodium Chloride 1,000 ml @ 125 mls/hr 1X ONCE IV Last administered on 09/28/20at 18:28; Start 09/28/20 at 18:00; Stop 09/29/20 at 01:59; Status DC Sodium Chloride (Normal Saline Flush) 3 ml QSHIFT PRN IV AFTER MEDS AND BLOOD DRAWS; Start 09/28/20 at 20:15 Sodium Chloride 1,000 ml @ 100 mls/hr Q10H IV Last administered on 10/01/20at 00:08; Start 09/28/20 at 20:15 Ondansetron HCl (Zofran) 4 mg PRN Q4HRS PRN IV NAUSEA/VOMITING; Start 09/28/20 at 20:15 Acetaminophen (Tylenol) 650 mg PRN Q4HRS PRN PO TEMP OVER 100.4F OR MILD PAIN; Start 09/28/20 at 20:15 Acetaminophen (Tylenol Supp) 650 mg PRN Q4HRS PRN ID TEMP OVER 100.4F OR MILD PAIN; Start 09/28/20 at 20:15 Clonidine HCl (Catapres) 0.1 mg PRN Q6HRS PRN PO SBP>160 OR DBP>90; Start 09/28/20 at 20:15 Sodium Monofluorophosphate (Fleet Adult) 133 ml PRN DAILY PRN ID CONSTIPATION; Start 09/28/20 at 20:15 Docusate Sodium (Colace) 100 mg PRN BID PRN PO HARD STOOLS; Start 09/28/20 at 20:15 Albuterol Sulfate (Ventolin Neb Soln) 2.5 mg PRN Q4HRS PRN NEB SHORTNESS OF BREATH; Start 09/28/20 at 20:15 Guaifenesin (Robitussin) 200 mg PRN Q4HRS PRN PO COUGH; Start 09/28/20 at 20:15 Lorazepam (Ativan) 0.5 mg PRN Q4HRS PRN PO ANXIETY / AGITATION; Start 09/28/20 at 20:15 Hydromorphone HCl (Dilaudid) 0.5 mg PRN Q2HRS PRN IV SEVERE PAIN 7-10; Start 09/28/20 at 20:15 Enoxaparin Sodium (Lovenox 40mg Syringe) 40 mg Q24H SQ Last administered on 09/29/20at 20:40; Start 09/28/20 at 20:15; Stop 09/30/20 at 13:09; Status DC Piperacillin Sod/ Tazobactam Sod 3.375 gm/Sodium Chloride 50 ml @ 100 mls/hr Q6HRS IV Last administered on 10/01/20at 05:36; Start 09/29/20 at 00:00 Pantoprazole Sodium (PROTONIX VIAL for IV PUSH) 40 mg DAILY08 IVP Last administered on 10/01/20at 08:24; Start 09/28/20 at 20:15 Hydralazine HCl (Apresoline Inj) 10 mg PRN Q4HRS PRN IVP ELEVATED BP, SEE COMMENTS; Start 09/28/20 at 20:15 Potassium Chloride/Water 100 ml @ 50 mls/hr 1X ONCE IV Last administered on 09/29/20at 09:16; Start 09/29/20 at 10:00; Stop 09/29/20 at 11:59; Status DC Iohexol (Omnipaque 300 Mg/ml) 75 ml 1X ONCE IV Last administered on 09/29/20at 10:44; Start 09/29/20 at 09:15; Stop 09/29/20 at 09:16; Status DC Iohexol (Omnipaque 240 Mg/ml) 50 ml 1X ONCE PO Last administered on 09/29/20at 09:15; Start 09/29/20 at 09:15; Stop 09/29/20 at 09:16; Status DC Info (CONTRAST GIVEN -- Rx MONITORING) 1 each PRN DAILY PRN MC SEE COMMENTS; Start 09/29/20 at 09:15; Stop 10/01/20 at 09:14; Status DC Enoxaparin Sodium (Lovenox 40mg Syringe) 40 mg Q12H SQ Last administered on 10/01/20at 08:28; Start 09/30/20 at 21:00 Active Scripts Active Prednisone 20 Mg Tablet 20 Mg PO DAILY Vitals/I & O Vital Sign - Last 24 Hours 09/30/20 09/30/20 09/30/20 09/30/20 11:00 15:00 19:00 20:00 Temp 98.7 100.3 98.4 98.7 100.3 98.4 Pulse 85 85 76 Resp 18 18 18 B/P (MAP) 160/100 (120) 179/94 (122) 152/88 (109) Pulse Ox 96 96 98 O2 Delivery Room Air Room Air Room Air Room Air 09/30/20 10/01/20 10/01/20 23:00 03:00 07:00 Temp 98.1 98.0 98.6 98.1 98.0 98.6 Pulse 78 81 81 Resp 18 18 18 B/P (MAP) 166/96 (119) 167/87 (113) 138/72 (94) Pulse Ox 95 96 93 O2 Delivery Room Air Room Air Room Air Intake and Output 09/30/20 09/30/20 10/01/20 15:00 23:00 07:00 Intake Total 0 ml Balance 0 ml Justifications for Admission General Conditions Other justification for admit: ACUTE CHOLECYSTITIS Other Justification JASON RODRIGUEZ MD Oct 01, 2020 10:20
[2020-10-01 11:00] VITALS: BP 130/86
--- NOTE | 2020-10-01 13:06 | PDOC ---
GENERAL General: Patient examined chart reviewed she is feeling okay today looking forward to definitively treating her cholecystitis. Pain and symptoms are well controlled with holding her diet. Appreciate subspecialty support. We will continue current management otherwise. Problems: (1) Acute cholecystitis (2) Acute pancreatitis (3) Morbid obesity VITAL SIGNS Vital Signs/I&O: Vital Signs Date Time Temp Pulse Resp B/P (MAP) Pulse Ox O2 Delivery O2 Flow Rate FiO2 10/01/20 11:00 98.7 91 18 130/86 (101) 93 Room Air 98.7 I & O 09/30/20 09/30/20 10/01/20 15:00 23:00 07:00 Intake Total 0 ml Balance 0 ml Patient is sitting up relaxing tells me she is feeling fine today has no complaints HEENT exam is unremarkable Chest is clear to auscultation Heart S1-S2 normal regular rate and rhythm no murmurs or gallops are noted Abdomen soft nontender nondistended no masses organomegaly noted Extremity exam is unremarkable for acute abnormality ALLERGIES Allergies: Allergies Coded Allergies Type Severity Reaction Last Updated Verified No Known Drug Allergies 09/28/20 No MEDS Medications: Current Medications Medications (Trade) Dose Ordered Sig/Jitendra Start Time Stop Time Status Last Admin Dose Admin Acetaminophen (Tylenol Supp) 650 mg PRN Q4HRS PRN 09/28/20 20:15 Acetaminophen (Tylenol) 650 mg PRN Q4HRS PRN 09/28/20 20:15 Albuterol Sulfate (Ventolin Neb Soln) 2.5 mg PRN Q4HRS PRN 09/28/20 20:15 Clonidine HCl (Catapres) 0.1 mg PRN Q6HRS PRN 09/28/20 20:15 Docusate Sodium (Colace) 100 mg PRN BID PRN 09/28/20 20:15 Enoxaparin Sodium (Lovenox 40mg Syringe) 40 mg Q12H 09/30/20 21:00 10/01/20 08:28 Famotidine (Pepcid Vial) 20 mg 1X ONCE 09/28/20 13:30 09/28/20 13:31 DC 09/28/20 17:10 Fentanyl Citrate (Fentanyl 2ml Vial) 50 mcg PRN Q1HR PRN 09/28/20 18:00 09/29/20 17:59 DC Guaifenesin (Robitussin) 200 mg PRN Q4HRS PRN 09/28/20 20:15 Hydralazine HCl (Apresoline Inj) 10 mg PRN Q4HRS PRN 09/28/20 20:15 Hydromorphone HCl (Dilaudid) 0.5 mg PRN Q2HRS PRN 09/28/20 20:15 Info (CONTRAST GIVEN -- Rx MONITORING) 1 each PRN DAILY PRN 09/29/20 09:15 10/01/20 09:14 DC Iohexol (Omnipaque 240 Mg/ml) 50 ml 1X ONCE 09/29/20 09:15 09/29/20 09:16 DC 09/29/20 09:15 Iohexol (Omnipaque 300 Mg/ml) 75 ml 1X ONCE 09/29/20 09:15 09/29/20 09:16 DC 09/29/20 10:44 Lorazepam (Ativan) 0.5 mg PRN Q4HRS PRN 09/28/20 20:15 Ondansetron HCl (Zofran) 4 mg PRN Q4HRS PRN 09/28/20 20:15 Pantoprazole Sodium (PROTONIX VIAL for IV PUSH) 40 mg DAILY08 09/28/20 20:15 10/01/20 08:24 Piperacillin Sod/ Tazobactam Sod 3.375 gm/Sodium Chloride 50 ml @ 100 mls/hr Q6HRS 09/29/20 00:00 10/01/20 11:40 Potassium Chloride/Water 100 ml @ 50 mls/hr 1X ONCE 09/29/20 10:00 09/29/20 11:59 DC 09/29/20 09:16 Sodium Monofluorophosphate (Fleet Adult) 133 ml PRN DAILY PRN 09/28/20 20:15 Sodium Chloride 1,000 ml @ 100 mls/hr Q10H 09/28/20 20:15 10/01/20 11:40 Sodium Chloride (Normal Saline Flush) 3 ml QSHIFT PRN 09/28/20 20:15 Current Medications Medications (Trade) Dose Ordered Sig/Jitendra Route PRN Reason Start Time Stop Time Status Last Admin Dose Admin Enoxaparin Sodium (Lovenox 40mg Syringe) 40 mg Q12H SQ 09/30/20 21:00 10/01/20 08:28 LAB Lab: Laboratory Tests Test 10/01/20 06:05 White Blood Count 14.1 x10^3/uL (4.0-11.0) H Red Blood Count 3.94 x10^6/uL (3.50-5.40) Hemoglobin 12.2 g/dL (12.0-15.5) Hematocrit 36.2 % (36.0-47.0) Mean Corpuscular Volume 92 fL (79-100) Mean Corpuscular Hemoglobin 31 pg (25-35) Mean Corpuscular Hemoglobin Concent 34 g/dL (31-37) Red Cell Distribution Width 13.7 % (11.5-14.5) Platelet Count 205 x10^3/uL (140-400) Neutrophils (%) (Auto) 78 % (31-73) H Lymphocytes (%) (Auto) 15 % (24-48) L Monocytes (%) (Auto) 6 % (0-9) Eosinophils (%) (Auto) 0 % (0-3) Basophils (%) (Auto) 0 % (0-3) Neutrophils # (Auto) 11.0 x10^3/uL (1.8-7.7) H Lymphocytes # (Auto) 2.2 x10^3/uL (1.0-4.8) Monocytes # (Auto) 0.8 x10^3/uL (0.0-1.1) Eosinophils # (Auto) 0.1 x10^3/uL (0.0-0.7) Basophils # (Auto) 0.0 x10^3/uL (0.0-0.2) Sodium Level 135 mmol/L (136-145) L Potassium Level 3.3 mmol/L (3.5-5.1) L Chloride Level 100 mmol/L (98-107) Carbon Dioxide Level 25 mmol/L (21-32) Anion Gap 10 (6-14) Blood Urea Nitrogen 8 mg/dL (7-20) Creatinine 0.8 mg/dL (0.6-1.0) Estimated GFR (Cockcroft-Gault) 81.2 BUN/Creatinine Ratio 10 (6-20) Glucose Level 63 mg/dL (70-99) L Calcium Level 8.1 mg/dL (8.5-10.1) L Total Bilirubin 0.9 mg/dL (0.2-1.0) Aspartate Amino Transferase (AST) 36 U/L (15-37) Alanine Aminotransferase (ALT) 86 U/L (14-59) H Alkaline Phosphatase 122 U/L (46-116) H Total Protein 7.6 g/dL (6.4-8.2) Albumin 2.7 g/dL (3.4-5.0) L Albumin/Globulin Ratio 0.6 (1.0-1.7) L Lipase 632 U/L (73-393) H Laboratory Tests 10/01/20 06:05 Laboratory Tests 10/01/20 06:05 ASSESSMENT & PLAN A&P Plan as noted above This note was created using Jack Erwin and may have omissions and/or errors due to the nature of real-time voice creative technologist. Justifications for Admission General Conditions Other justification for admit: ACUTE CHOLECYSTITIS Other Justification Problem Qualifiers (1) Acute pancreatitis: Pancreatitis type: unspecified pancreatitis type Acute pancreatitis complication: unspecified Qualified Codes: K85.90 - Acute pancreatitis without necrosis or infection, unspecified TINA CLAORS MD Oct 01, 2020 13:06
[2020-10-01] MEDS ORDERED: POTASSIUM CHLORIDE 20MEQ 100 ML IV ONE (14:00)
[2020-10-01 15:00] VITALS: BP 165/94
--- NOTE | 2020-10-01 15:27 | NUR ---
Pt c/o severe pain with IV Kcl. Called placed out to Dr. Guillen.
--- NOTE | 2020-10-01 15:48 | NUR ---
Dr. Guillen returned call. No new order, call pharmacy and ask for Kcl to be mixed in with fluids. Pharmacy notified and will send up two bags of 10meq/100NS.
[2020-10-01] MEDS: POTASSIUM CHLORIDE 10MEQ 100 ML IV SCH ×2 (16:06→16:15)
[2020-10-01 19:00] VITALS: BP 163/102
[2020-10-01 23:00] VITALS: BP 155/98
[2020-10-02 03:00] VITALS: BP 161/88
[2020-10-02] MEDS: IV NORMAL SALINE 1000ML BAG 1,000 ML IV SCH ×2 (04:15→16:37)
[2020-10-02] MEDS: PIPERACILLIN/TAZOBACTAM 3.375 GM in IV NORMAL SALINE 50ML 50 ML IV SCH ×4 (05:45→23:24)
[2020-10-02 07:00] VITALS: BP 161/98
[2020-10-02 07:40] LABS: BASO % 0 % (0-3); EOS # 0.1 x10^3/uL (0.0-0.7); EOS % 1 % (0-3); HEMATOCRIT 38.4 % (36.0-47.0); HEMOGLOBIN 12.8 g/dL (12.0-15.5); LYMPH % 14 % (24-48); MEAN CORPUSCULAR HEMOGLOBIN 31 pg (25-35); MEAN CORPUSCULAR HGB CONC 34 g/dL (31-37); MEAN CORPUSCULAR VOLUME 91 fL (79-100); MONO % 7 % (0-9); NEUT # 11.1 x10^3/uL (1.8-7.7); NEUT % 79 % (31-73); PLATELET COUNT 232 x10^3/uL (140-400); RED BLOOD COUNT 4.21 x10^6/uL (3.50-5.40); WHITE BLOOD COUNT 14.2 x10^3/uL (4.0-11.0)
--- NOTE | 2020-10-02 07:57 | PDOC ---
[facility] PROGRESS NOTE Date of Service DOS: DATE: 10/02/20 TIME: 07:53 Chief Complaint Chief Complaint A/P: RUQ pain Acute cholecystitis Acute pancreatitis - gallstone pancreatitis History of Present Illness History of Present Illness Ms Arguello is a 34 y/o female w/ PMHx morbid obesity admitted through ER for RUQ abdominal pain and vomiting. Labs noted leukocytosis, elevated LFT, elevated lipase. US showed gallstones, fatty liver, GB wall thickening, +Yo's, and CBD 6mm. 09/29/2020: Reports RUQ pain, denies nausea 09/30: Pain continues to improve 10/01: labs and pain improved. Lipase in 600s Afebrile. Trying liquid diet today. Discussed plans for CT abdomen/pelvis, if no clear signs of ongoing or worsening pancreatitis she can move forward with cholecystectomy on 10/03/20. Vitals/I&O Vitals/I&O: Vital Signs Date Time Temp Pulse Resp B/P (MAP) Pulse Ox O2 Delivery O2 Flow Rate FiO2 10/02/20 03:00 98.9 91 18 161/88 (112) 94 Room Air 98.9 Physical Exam General: Alert, Oriented X3 Heart: Regular rate Lungs: Clear, Other (No wheezes or crackles) Abdomen: Soft, No tenderness Extremities: No clubbing Skin: No rashes, No breakdown Labs Labs: Laboratory Tests Test 10/01/20 20:01 10/02/20 07:05 Glucose (Fingerstick) 69 mg/dL (70-99) 79 mg/dL (70-99) Assessment and Plan Assessmemt and Plan Problems Medical Problems: (1) Acute cholecystitis Status: Acute (2) Acute pancreatitis Status: Acute (3) Cholecystitis Status: Acute Goals of Care: Advance Care Planning: Total time spent [id number] with patient greater than 16 minutes in discussion with goals of care, comfort care, end-of-life care, pain management, code status Comment Review of Relevant I have reviewed the following items jeff (where applicable) has been applied. Medications: Current Medications Medications (Trade) Dose Ordered Sig/Jitendra Route PRN Reason Start Time Stop Time Status Last Admin Dose Admin Potassium Chloride/Water 100 ml @ 50 mls/hr 1X ONCE IV 10/01/20 14:00 10/01/20 15:59 DC 10/01/20 14:45 Potassium Chloride/Water 100 ml @ 100 mls/hr Q1H IV 10/01/20 16:00 10/01/20 17:59 DC 10/01/20 16:15 Justifications for Admission General Conditions Other justification for admit: ACUTE CHOLECYSTITIS Other Justification CAMRYN THOMPSON MD Oct 02, 2020 07:56
[2020-10-02] MEDS: ENOXAPARIN 40 MG/0.4 ML SYRINGE. SQ SCH (08:40)
[2020-10-02] MEDS: PANTOPRAZOLE IV PUSH 40 MG VIAL. IVP SCH (08:40)
--- NOTE | 2020-10-02 09:00 | PDOC ---
LAURIE BLACK [employer] 10/02/20 0900: SURGICAL PROGRESS NOTE DATE: 10/02/20 TIME: 08:59 Subjective no abdominal pain no nausea Vital Signs Vital Signs Date Time Temp Pulse Resp B/P (MAP) Pulse Ox O2 Delivery O2 Flow Rate FiO2 10/02/20 07:00 99.4 96 18 161/98 (119) 92 Room Air 99.4 General: Alert, Oriented X3, Cooperative Abdomen: Soft, No tenderness Labs Laboratory Tests Test 10/01/20 06:05 10/01/20 20:01 10/02/20 06:50 10/02/20 07:05 White Blood Count 14.1 x10^3/uL (4.0-11.0) 14.2 x10^3/uL (4.0-11.0) Red Blood Count 3.94 x10^6/uL (3.50-5.40) 4.21 x10^6/uL (3.50-5.40) Hemoglobin 12.2 g/dL (12.0-15.5) 12.8 g/dL (12.0-15.5) Hematocrit 36.2 % (36.0-47.0) 38.4 % (36.0-47.0) Mean Corpuscular Volume 92 fL (79-100) 91 fL (79-100) Mean Corpuscular Hemoglobin 31 pg (25-35) 31 pg (25-35) Mean Corpuscular Hemoglobin Concent 34 g/dL (31-37) 34 g/dL (31-37) Red Cell Distribution Width 13.7 % (11.5-14.5) 14.0 % (11.5-14.5) Platelet Count 205 x10^3/uL (140-400) 232 x10^3/uL (140-400) Neutrophils (%) (Auto) 78 % (31-73) 79 % (31-73) Lymphocytes (%) (Auto) 15 % (24-48) 14 % (24-48) Monocytes (%) (Auto) 6 % (0-9) 7 % (0-9) Eosinophils (%) (Auto) 0 % (0-3) 1 % (0-3) Basophils (%) (Auto) 0 % (0-3) 0 % (0-3) Neutrophils # (Auto) 11.0 x10^3/uL (1.8-7.7) 11.1 x10^3/uL (1.8-7.7) Lymphocytes # (Auto) 2.2 x10^3/uL (1.0-4.8) 2.0 x10^3/uL (1.0-4.8) Monocytes # (Auto) 0.8 x10^3/uL (0.0-1.1) 1.0 x10^3/uL (0.0-1.1) Eosinophils # (Auto) 0.1 x10^3/uL (0.0-0.7) 0.1 x10^3/uL (0.0-0.7) Basophils # (Auto) 0.0 x10^3/uL (0.0-0.2) 0.0 x10^3/uL (0.0-0.2) Sodium Level 135 mmol/L (136-145) Potassium Level 3.3 mmol/L (3.5-5.1) Chloride Level 100 mmol/L (98-107) Carbon Dioxide Level 25 mmol/L (21-32) Anion Gap 10 (6-14) Blood Urea Nitrogen 8 mg/dL (7-20) Creatinine 0.8 mg/dL (0.6-1.0) Estimated GFR (Cockcroft-Gault) 81.2 BUN/Creatinine Ratio 10 (6-20) Glucose Level 63 mg/dL (70-99) Calcium Level 8.1 mg/dL (8.5-10.1) Total Bilirubin 0.9 mg/dL (0.2-1.0) Aspartate Amino Transf (AST/SGOT) 36 U/L (15-37) Alanine Aminotransferase (ALT/SGPT) 86 U/L (14-59) Alkaline Phosphatase 122 U/L (46-116) Total Protein 7.6 g/dL (6.4-8.2) Albumin 2.7 g/dL (3.4-5.0) Albumin/Globulin Ratio 0.6 (1.0-1.7) Lipase 632 U/L (73-393) 674 U/L (73-393) Glucose (Fingerstick) 69 mg/dL (70-99) 79 mg/dL (70-99) Laboratory Tests Test 10/01/20 20:01 10/02/20 06:50 10/02/20 07:05 Glucose (Fingerstick) 69 mg/dL (70-99) 79 mg/dL (70-99) White Blood Count 14.2 x10^3/uL (4.0-11.0) Red Blood Count 4.21 x10^6/uL (3.50-5.40) Hemoglobin 12.8 g/dL (12.0-15.5) Hematocrit 38.4 % (36.0-47.0) Mean Corpuscular Volume 91 fL (79-100) Mean Corpuscular Hemoglobin 31 pg (25-35) Mean Corpuscular Hemoglobin Concent 34 g/dL (31-37) Red Cell Distribution Width 14.0 % (11.5-14.5) Platelet Count 232 x10^3/uL (140-400) Neutrophils (%) (Auto) 79 % (31-73) Lymphocytes (%) (Auto) 14 % (24-48) Monocytes (%) (Auto) 7 % (0-9) Eosinophils (%) (Auto) 1 % (0-3) Basophils (%) (Auto) 0 % (0-3) Neutrophils # (Auto) 11.1 x10^3/uL (1.8-7.7) Lymphocytes # (Auto) 2.0 x10^3/uL (1.0-4.8) Monocytes # (Auto) 1.0 x10^3/uL (0.0-1.1) Eosinophils # (Auto) 0.1 x10^3/uL (0.0-0.7) Basophils # (Auto) 0.0 x10^3/uL (0.0-0.2) Lipase 674 U/L (73-393) Problem List Problems Medical Problems: (1) Acute cholecystitis Status: Acute (2) Acute pancreatitis Status: Acute (3) Cholecystitis Status: Acute Assessment/Plan improving plan for lap gris tomorrow Justicifation of Admission Dx: Justifications for Admission: Justification of Admission Dx: Yes KRISSY BLOOD MD 10/03/20 0936: SURGICAL PROGRESS NOTE Assessment/Plan Agree with Jenny assessment plan tentatively scheduled for laparoscopic cholecystectomy 10/03 LAURIE BLACK APRN Oct 02, 2020 09:00 KRISSY BLOOD MD Oct 03, 2020 09:36
--- NOTE | 2020-10-02 10:23 | PDOC ---
Date of Service: DATE: 10/02/20 TIME: 10:19 Subjective: Subjective: Pain is better, taking some ice and water. Objective: Objective: D/w nurse - plans for cholecystectomy tomorrow. Vital Signs: Vital Signs Date Time Temp Pulse Resp B/P (MAP) Pulse Ox O2 Delivery O2 Flow Rate FiO2 10/02/20 07:00 99.4 96 18 161/98 (119) 92 Room Air 99.4 Labs: Laboratory Tests Test 10/01/20 20:01 10/02/20 07:05 Glucose (Fingerstick) 69 mg/dL (70-99) 79 mg/dL (70-99) Imaging: CT A/P 09/29 IMPRESSION: Findings suggesting acute cholecystitis are again seen, including a small gallstone in the gallbladder neck with circumferential mural thickening of the gallbladder. No CT evidence of pancreatitis or complications related to acute pancreatitis, though evaluation of the pancreas is slightly limited in the absence of arterial phase imaging. PE: GEN: NAD, talking on phone LUNGS: CTAB HEART: RRR ABD: quiet, soft/obese, non-tender NEURO/PSYCH: A & O 3 A/P: Gallstone pancreatitis/cholecystitis Leukocytosis (stable), elevated LFTs (resolving) Fatty liver, dilated CBD (6mm), suspect h/o GERD COVID negative BMI 48.5 HTN -- Pain improved. Plans for cholecystectomy tomorrow, await operative findings. Justicifation of Admission Dx: Justifications for Admission: Justification of Admission Dx: Yes RAFAEL CONCEPCION Oct 02, 2020 10:23
[2020-10-02 11:00] VITALS: BP 145/97
[2020-10-02] MEDS ORDERED: IOHEXOL 300 MG/ML 100ML VIAL. IV ONE (12:00)
[2020-10-02] MEDS ORDERED: IOHEXOL 240 MG/ML 50ML VIAL. PO ONE (12:00)
[2020-10-02 15:00] VITALS: BP 144/98
[2020-10-02 16:04] LABS: ALBUMIN 2.8 g/dL (3.4-5.0); ALBUMIN/GLOBULIN RATIO 0.5 (1.0-1.7); CALCIUM 8.3 mg/dL (8.5-10.1); CREATININE 0.8 mg/dL (0.6-1.0); GFR 81.2; POTASSIUM 3.3 mmol/L (3.5-5.1); TOTAL BILIRUBIN 0.8 mg/dL (0.2-1.0); TOTAL PROTEIN 8.1 g/dL (6.4-8.2)
--- NOTE | 2020-10-02 16:05 | RAD ---
CT of the abdomen and pelvis with contrast 10/02/2020 4:00 PM Indication: Reason: eval pancreatitis / Spl. Instructions: IV OMNI 300 75 MLS AND PO OMNI 240 50 MLS / History: Comparison study: None Technique: Multidetector CT imaging of the abdomen and pelvis was performed following the administrat ion of IV contrast. Findings: Mild atelectasis noted in the lung bases. Peripancreatic inflammatory changes seen consistent with acute pancreatitis. No overt pancreatic necr osis is identified. No pseudocysts or loculated fluid collections are seen. The liver is unremarkable. Minimal pericholecystic fluid and stranding is seen which is nonspecific i n the setting of ascites. Gallstones appear to be present in the dependent portion of the gallbladder . The kidneys are unremarkable. The adrenal glands are unremarkable. Spleen is unremarkable. There is no bowel obstruction. The appendix is unremarkable. Bladder is unremarkable. No pneumoperitoneum is seen. No acute osseous changes noted in the interim. IMPRESSION: 1.Acute pancreatitis. The appearance is perhaps minimally worse than on comparison study, but overall fairly similar. No necrosis or pseudocyst is identified. 2. Cholelithiasis and mild pericholecystic fluid, similar to comparison studies CT DOSING PQRS STATEMENT: One or more of the following individualized dose reduction techniques were utilized for this examinat ion: 1. Automated exposure control 2. Adjustment of the mA and/or kV according to patient size 3. Use of iterative reconstruction technique Electronically signed by: Santino Das MD (10/02/2020 4:03 PM) [id number]
[2020-10-02 19:00] VITALS: BP 139/96
[2020-10-02 23:00] VITALS: BP 122/81
[2020-10-03] MEDS: IV NORMAL SALINE 1000ML BAG 1,000 ML IV SCH ×2 (00:15→10:15)
[2020-10-03 03:00] VITALS: BP 117/80
[2020-10-03] MEDS: PIPERACILLIN/TAZOBACTAM 3.375 GM in IV NORMAL SALINE 50ML 50 ML IV SCH ×4 (05:19→23:47)
[2020-10-03] MEDS ORDERED: fentaNYL PF VIAL 100 MCG/2 ML VIAL IVP PRN ×2 (06:00)
[2020-10-03] MEDS ORDERED: PROCHLORPERAZINE 10 MG/2 ML VIAL. IVP PRN (06:00)
[2020-10-03] MEDS ORDERED: HYDROmorphone 2 MG/ML VIAL IVP PRN (06:00)
[2020-10-03] MEDS ORDERED: MORPHINE SULFATE 2 MG/ML VIAL. IVP PRN (06:00)
[2020-10-03] MEDS ORDERED: IV RINGERS,LACTATED 1000ML 1,000 ML IV SCH (06:00)
[2020-10-03 07:00] VITALS: BP 121/84
[2020-10-03] MEDS: PANTOPRAZOLE IV PUSH 40 MG VIAL. IVP SCH (07:53)
--- NOTE | 2020-10-03 08:24 | PDOC ---
[facility] [facility] PROGRESS NOTE Date of Service DOS: DATE: 10/03/20 TIME: 08:24 Chief Complaint Chief Complaint A/P: RUQ pain Acute cholecystitis Acute pancreatitis - gallstone pancreatitis History of Present Illness History of Present Illness Ms Arguello is a 34 y/o female w/ PMHx morbid obesity admitted through ER for RUQ abdominal pain and vomiting. Labs noted leukocytosis, elevated LFT, elevated lipase. US showed gallstones, fatty liver, GB wall thickening, +Yo's, and CBD 6mm. 09/29/2020: Reports RUQ pain, denies nausea 09/30: Pain continues to improve 10/01: labs and pain improved. Lipase in 600s 10/02: Afebrile. Trying liquid diet today. Discussed plans for CT abdomen/pelvis, if no clear signs of ongoing or worsening pancreatitis she can move forward with cholecystectomy. Afebrile. She did have some pain after liquid diet yesterday. Lipase trended down. Going to OR for lap gris today. Vitals/I&O Vitals/I&O: Vital Signs Date Time Temp Pulse Resp B/P (MAP) Pulse Ox O2 Delivery O2 Flow Rate FiO2 10/03/20 07:00 98.2 111 18 121/84 (96) 93 Room Air 98.2 I & O 10/02/20 10/02/20 10/03/20 15:00 23:00 07:00 Intake Total 360 ml 1050 ml Balance 360 ml 1050 ml Physical Exam General: Alert, Oriented X3, Cooperative Heart: Regular rate Lungs: Clear, Other (No wheezes or crackles) Abdomen: Soft, No tenderness Extremities: No clubbing Skin: No rashes, No breakdown Labs Labs: Laboratory Tests Test 10/02/20 13:15 Glucose (Fingerstick) 147 mg/dL (70-99) Assessment and Plan Assessmemt and Plan Problems Medical Problems: (1) Acute cholecystitis Status: Acute (2) Acute pancreatitis Status: Acute (3) Cholecystitis Status: Acute Goals of Care: Advance Care Planning: Total time spent [id number] with patient greater than 16 minutes in discussion with goals of care, comfort care, end-of-life care, pain management, code status Comment Review of Relevant I have reviewed the following items jeff (where applicable) has been applied. Medications: Current Medications Medications (Trade) Dose Ordered Sig/Jitendra Route PRN Reason Start Time Stop Time Status Last Admin Dose Admin Ringer's Solution 1,000 ml @ 30 mls/hr Q24H IV 10/03/20 06:00 10/03/20 17:59 10/03/20 05:19 Iohexol (Omnipaque 300 Mg/ml) 75 ml 1X ONCE IV 10/02/20 12:00 10/02/20 12:02 DC 10/02/20 12:00 Iohexol (Omnipaque 240 Mg/ml) 50 ml 1X ONCE PO 10/02/20 12:00 10/02/20 12:02 DC 10/02/20 12:00 Justifications for Admission General Conditions Other justification for admit: ACUTE CHOLECYSTITIS Other Justification CAMRYN THOMPSON MD Oct 03, 2020 08:24
--- NOTE | 2020-10-03 10:36 | NUR ---
NS non admin on EMAR. LR currently still infusing.
--- NOTE | 2020-10-03 10:57 | PDOC ---
Date of Service: DATE: 10/03/20 TIME: 10:55 Subjective: Subjective: Waiting for surgery, no pain. Objective: Vital Signs: Vital Signs Date Time Temp Pulse Resp B/P (MAP) Pulse Ox O2 Delivery O2 Flow Rate FiO2 10/03/20 08:00 Room Air 10/03/20 07:00 98.2 111 18 121/84 (96) 93 98.2 Labs: Laboratory Tests Test 10/02/20 13:15 10/03/20 07:50 Glucose (Fingerstick) 147 mg/dL Lipase 764 U/L Imaging: CT A/P 10/02 IMPRESSION: 1.Acute pancreatitis. The appearance is perhaps minimally worse than on comparison study, but overall fairly similar. No necrosis or pseudocyst is identified. 2. Cholelithiasis and mild pericholecystic fluid, similar to comparison studies PE: GEN: NAD LUNGS: CTAB HEART: mildly tachycardic ABD: quiet, soft, non-tender NEURO/PSYCH: A & O 3, smiling A/P: Gallstone pancreatitis/cholecystitis Leukocytosis Fatty liver, dilated CBD (6mm) - LFTs improved COVID negative BMI 48.5 -- Interval CT and labs noted. ?OR today - will follow Justicifation of Admission Dx: Justifications for Admission: Justification of Admission Dx: Yes RAFAEL CONCEPCION Oct 03, 2020 10:57
[2020-10-03 11:00] VITALS: BP 131/83
[2020-10-03 15:00] VITALS: BP 141/92
[2020-10-03 19:00] VITALS: BP 135/92
[2020-10-03 23:00] VITALS: BP 117/84
[2020-10-04] VITALS (12 sets, daily range): BP systolic 108–129; BP diastolic 66–86
[2020-10-04] MEDS: PIPERACILLIN/TAZOBACTAM 3.375 GM in IV NORMAL SALINE 50ML 50 ML IV SCH ×4 (05:08→23:31)
[2020-10-04] MEDS ORDERED: PROCHLORPERAZINE 10 MG/2 ML VIAL. IVP PRN (06:00)
[2020-10-04] MEDS ORDERED: HYDROmorphone 2 MG/ML VIAL IVP PRN (06:00)
[2020-10-04] MEDS ORDERED: IV RINGERS,LACTATED 1000ML 1,000 ML IV SCH (06:00)
[2020-10-04] MEDS ORDERED: MORPHINE SULFATE 2 MG/ML VIAL. IVP PRN (06:00)
[2020-10-04] MEDS ORDERED: fentaNYL PF VIAL 100 MCG/2 ML VIAL IVP PRN ×2 (06:00)
[2020-10-04] MEDS ORDERED: BUPIVACAINE-EPI 0.25% 30 ML VIAL KIT. ONE (06:54)
[2020-10-04] MEDS ORDERED: SURGICEL HEMOSTAT 4X8 EACH. ONE (06:54)
[2020-10-04] MEDS ORDERED: IOHEXOL 300 MG/ML 50 ML VIAL. ONE (06:54)
[2020-10-04] MEDS: PANTOPRAZOLE IV PUSH 40 MG VIAL. IVP SCH (07:44)
[2020-10-04] MEDS ORDERED: ROCURONIUM 50 MG/5 ML VIAL. ONE ×2 (07:46→09:25)
[2020-10-04] MEDS ORDERED: fentaNYL PF VIAL 100 MCG/2 ML VIAL ONE (07:46)
[2020-10-04] MEDS ORDERED: GLYCOPYRROLATE 1 MG/5 ML VIAL. ONE (07:46)
[2020-10-04] MEDS ORDERED: MIDAZOLAM HCL/PF 2 MG/2 ML VIAL. ONE (07:46)
[2020-10-04] MEDS ORDERED: NEOSTIGMINE METHYLSULFATE 5 MG/5 ML SYRINGE. ONE (07:46)
[2020-10-04] MEDS ORDERED: SEVOFLURANE 31 TO 60 MINUTES. IH ONE (07:46)
[2020-10-04] MEDS ORDERED: PROPOFOL 10 MG/ML (20ML) VIAL. IV ONE (07:47)
[2020-10-04] MEDS ORDERED: ONDANSETRON PF 4 MG/2 ML VIAL. ONE (07:47)
[2020-10-04] MEDS ORDERED: LIDOCAINE 2% PF 5 ML VIAL. ONE (07:47)
[2020-10-04] MEDS ORDERED: DEXAMETHASONE SOD PHOS 4 MG/ML VIAL ONE (07:47)
[2020-10-04] MEDS ORDERED: BUPIVACAINE MPF 0.5% 30 ML VIAL. ONE (08:44)
[2020-10-04] MEDS ORDERED: BUPIVACAINE MPF 0.25% 30 ML VIAL. ONE (08:46)
--- NOTE | 2020-10-04 09:38 | PDOC4 ---
Operative Note Operative Note Date: October 042020 at 935 Preoperative diagnosis: Acute cholecystitis gallstone pancreatitis Postoperative diagnosis: Same Procedure laparoscopic cholecystectomy Surgeon: Tacos Specimen: Gallbladder Dictation: Patient is a 34-year-old female was mated to the hospital with gallstone pancreatitis. She was kept on bowel rest IV antibiotics for several days until her lipase returned to more normal levels she is afebrile and without pain. Procedure of laparoscopic cholecystectomy was explained to the patient detail risk benefits were also discussed including bleeding infection injury to intra-abdominal contents possible necessitating further open operations alternatives to this procedure also discussed with the patient who seemed to understand and gave both verbal and written consent to have the procedure performed. Patient was taken to the operating room placed in supine position general anesthesia was initiated once patient was sleeping intubated her abdomen was prepped and draped usual sterile fashion using ChloraPrep. An area just below the umbilicus was injected quarter percent Marcaine with epinephrine incision was made 11 blade scalpel and a varies needle was placed within the abdomen creating pneumoperitoneum once this was complete the millimeter port was placed and a 5 mm camera's placed within the abdomen which was inspected no other ab maladies were noted there is quite a few adhesions to the liver edge. A 5 mm port was placed in the epigastrium a 5 mm port was placed in the right midabdomen and a 5 mm port was placed in the right lateral abdomen. The adhesio ns to the liver were taken down with sharp and blunt dissection exposing the dome of the gallbladder which was grasped retracted cephalad more adhesions were taken down off of the gallbladder down to the triangle the infundibulum was grasped retracted laterally exposing the triangle tissues which were taken down with blunt dissection with [place]. The cystic duct was visualized completely cleared off of all adherent tissues circumferentially up to the gallbladder. The cystic duct was clipped 3 times on the distal end of 1 on the proximal end and then the duct was transected similarly the cystic artery was doubly clipped and transected the gallbladder is taken off the liver with hook electrocautery placed in Endo Catch bag moving the umbilicus right upper quadrant is irrigated and suctioned dry hemostasis deemed be appropriate the pneumoperitoneum was reduced all ports were removed the fascial defect at the umbilicus closed with a [id number] 0 Vicryl suture and skin was reapproximated all port sites for subcuticular Monocryl Mastisol Steri-Strips and island dressings were applied. Patient was awakened extubated in the operating room taken to recovery in stable condition all sponge instrument needle counts listed as correct estimated blood loss 10 mL. KRISSY BLOOD MD Oct 04, 2020 09:38
[2020-10-04] MEDS ORDERED: oxyCODONE/APAP 5/325 1 TAB TABLET PO PRN ×2 (09:45)
--- NOTE | 2020-10-04 10:18 | PDOC ---
Date of Service: DATE: 10/04/20 TIME: 10:17 Objective: Vital Signs: Vital Signs Date Time Temp Pulse Resp B/P (MAP) Pulse Ox O2 Delivery O2 Flow Rate FiO2 10/04/20 10:10 81 16 114/66 98 Simple Mask 6 10/04/20 09:58 98.6 98.6 PE: out of room A/P: Gallstone pancreatitis/cholecystitis s/p cholecystectomy 10/04/20 Fatty liver, dilated CBD (6mm) - LFTs improved (checked 10/02) COVID negative -- Reviewed op note, will follow. Justicifation of Admission Dx: Justifications for Admission: Justification of Admission Dx: Yes RAFAEL CONCEPCION Oct 04, 2020 10:18
--- NOTE | 2020-10-04 10:20 | NUR ---
SW following. Discussed with RN, pt from home with family, room air, NPO, COVID-19 negative. Pt having a lap gris today. Med Assist following for self pay status. SW will continue to follow.
[2020-10-04] MEDS: IV NORMAL SALINE 1000ML BAG 1,000 ML IV SCH ×3 (12:26→23:31)
--- NOTE | 2020-10-04 13:42 | PDOC ---
[employer] [facility] PROGRESS NOTE Date of Service DOS: DATE: 10/04/20 TIME: 13:49 Chief Complaint Chief Complaint A/P: RUQ pain Acute cholecystitis Acute pancreatitis - gallstone pancreatitis History of Present Illness History of Present Illness Ms Arguello is a 34 y/o female w/ PMHx morbid obesity admitted through ER for RUQ abdominal pain and vomiting. Labs noted leukocytosis, elevated LFT, elevated lipase. US showed gallstones, fatty liver, GB wall thickening, +Yo's, and CBD 6mm. 09/29/2020: Reports RUQ pain, denies nausea 09/30: Pain continues to improve 10/01: labs and pain improved. Lipase in 600s 10/02: Afebrile. Trying liquid diet today. Discussed plans for CT abdomen/pelvis, if no clear signs of ongoing or worsening pancreatitis she can move forward with cholecystectomy. 10/03: Afebrile. She did have some pain after liquid diet yesterday. Lipase trended down. Given CT results, will delay surgery 24 hours Afebrile. Seen post-operatively. She is feeling numb, but pain free currently. No SOB or CP. Vitals/I&O Vitals/I&O: Vital Signs Date Time Temp Pulse Resp B/P (MAP) Pulse Ox O2 Delivery O2 Flow Rate FiO2 10/04/20 12:00 62 121/81 (94) 99 Nasal Cannula 2.0 10/04/20 11:00 98.0 18 98.0 I & O 10/03/20 10/03/20 10/04/20 14:52 22:52 06:52 Intake Total 60 ml Balance 60 ml Physical Exam General: Alert, Oriented X3, Cooperative Heart: Regular rate Lungs: Clear, Other (No wheezes or crackles) Abdomen: Soft, No tenderness Extremities: No clubbing Skin: No rashes, No breakdown Assessment and Plan Assessmemt and Plan Problems Medical Problems: (1) Acute cholecystitis Status: Acute (2) Acute pancreatitis Status: Acute (3) Cholecystitis Status: Acute Goals of Care: Advance Care Planning: Total time spent [id number] with patient greater than 16 minutes in discussion with goals of care, comfort care, end-of-life care, pain management, code status Comment Review of Relevant I have reviewed the following items jeff (where applicable) has been applied. Medications: Current Medications Medications (Trade) Dose Ordered Sig/Jitendra Route PRN Reason Start Time Stop Time Status Last Admin Dose Admin Ringer's Solution 1,000 ml @ 30 mls/hr Q24H IV 10/04/20 06:00 10/04/20 17:59 10/04/20 05:13 Bupivacaine HCl/ Epinephrine Bitart (Sensorcain-Epi 0.25% Kit) 30 ml STK-MED ONCE .ROUTE 10/04/20 06:54 10/04/20 06:54 DC 10/04/20 09:04 Justifications for Admission General Conditions Other justification for admit: ACUTE CHOLECYSTITIS Other Justification CAMRYN THOMPSON MD Oct 04, 2020 13:42
[2020-10-05 03:00] VITALS: BP 122/78
[2020-10-05] MEDS: PIPERACILLIN/TAZOBACTAM 3.375 GM in IV NORMAL SALINE 50ML 50 ML IV SCH (05:50)
[2020-10-05 07:16] VITALS: BP 101/65
[2020-10-05] MEDS: PANTOPRAZOLE IV PUSH 40 MG VIAL. IVP SCH (08:05)
--- NOTE | 2020-10-05 09:07 | PDOC ---
LAURIE BLACK APRN 10/05/20 0907: SURGICAL PROGRESS NOTE DATE: 10/05/20 TIME: 09:06 Subjective incisional soreness tolerating breakfast overall doing ok Vital Signs Vital Signs Date Time Temp Pulse Resp B/P (MAP) Pulse Ox O2 Delivery O2 Flow Rate FiO2 10/05/20 08:11 18 94 Nasal Cannula 2.0 10/05/20 07:16 97.5 72 101/65 (77) 97.5 I&O Intake and Output 10/05/20 07:00 Intake Total 2525 ml Output Total 610 ml Balance 1915 ml Intake Oral 340 ml IV Total 1050 ml Other 1135 ml Output Urine Total 600 ml Estimated Blood Loss 10 ml # Voids 3 # Bowel Movements 1 General: Alert, Oriented X3, Cooperative Abdomen: Soft (ND) Problem List Problems Medical Problems: (1) Acute cholecystitis Status: Acute (2) Acute pancreatitis Status: Acute (3) Cholecystitis Status: Acute Assessment/Plan s/p gris ambulate, diet as tolerated, oral pain meds can dc when above adequate Justicifation of Admission Dx: Justifications for Admission: Justification of Admission Dx: Yes KRISSY BLOOD MD 10/05/20 0955: SURGICAL PROGRESS NOTE Assessment/Plan Agree with Alvarado assessment plan LAURIE BLACK APRN Oct 05, 2020 09:07 KRISSY BLOOD MD Oct 05, 2020 09:55
[2020-10-05] MEDS ORDERED: DOCU-153 PO (09:10)
[2020-10-05] MEDS ORDERED: OXYC1TAB15 PO (09:10)
--- NOTE | 2020-10-05 10:22 | NUR ---
SW following. Discussed with RN, pt from home with family, room air, low fat diet, COVID-19 negative. Pt had surgery 10/04/20. RN anticipates discharge home today with self care. Med Assist following for self pay status. SW will continue to follow.
[2020-10-05 10:32] VITALS: BP 117/76
--- NOTE | 2020-10-05 10:52 | PDOC ---
Date of Service: DATE: 10/05/20 TIME: 10:50 Subjective: Subjective: Worried she gets sleepy from pain meds. Abdomen is sore. Eating some, passing gas. Objective: Vital Signs: Vital Signs Date Time Temp Pulse Resp B/P (MAP) Pulse Ox O2 Delivery O2 Flow Rate FiO2 10/05/20 10:32 97.7 63 18 117/76 (90) 94 97.7 10/05/20 08:11 Nasal Cannula 2.0 PE: GEN: NAD - does seem to have some discomfort today LUNGS: CTAB HEART: RRR ABD: quiet, obese, soft, incisional tenderness NEURO/PSYCH: A & O 3, drowsy A/P: Gallstone pancreatitis/cholecystitis S/p cholecystectomy 10/04/20 Fatty liver, dilated CBD (6mm) - LFTs improved (checked 10/02) -- Continue per surgery. Justicifation of Admission Dx: Justifications for Admission: Justification of Admission Dx: Yes RAFAEL CONCEPCION Oct 05, 2020 10:52
--- NOTE | 2020-10-05 13:06 | PDOC ---
[employer] PROGRESS NOTE Date of Service DOS: DATE: 10/05/20 TIME: 13:05 Chief Complaint Chief Complaint A/P: RUQ pain Acute cholecystitis Acute pancreatitis - gallstone pancreatitis History of Present Illness History of Present Illness Ms Arguello is a 34 y/o female w/ PMHx morbid obesity admitted through ER for RUQ abdominal pain and vomiting. Labs noted leukocytosis, elevated LFT, elevated lipase. US showed gallstones, fatty liver, GB wall thickening, +Yo's, and CBD 6mm. 09/29/2020: Reports RUQ pain, denies nausea 09/30: Pain continues to improve 10/01: labs and pain improved. Lipase in 600s 10/02: Afebrile. Trying liquid diet today. Discussed plans for CT abdomen/pelvis, if no clear signs of ongoing or worsening pancreatitis she can move forward with cholecystectomy. 10/03: Afebrile. She did have some pain after liquid diet yesterday. Lipase trended down. Given CT results, will delay surgery 24 hours 10/04: Afebrile. Seen post-operatively. She is feeling numb, but pain free currently. No SOB or CP. Cardiac regular diet well passing flatus. Pain is well controlled. Cleared by surgery to go home. Vitals/I&O Vitals/I&O: Vital Signs Date Time Temp Pulse Resp B/P (MAP) Pulse Ox O2 Delivery O2 Flow Rate FiO2 10/05/20 10:32 97.7 63 18 117/76 (90) 94 97.7 10/05/20 08:11 Nasal Cannula 2.0 I & O 10/04/20 10/04/20 10/05/20 15:00 23:00 07:00 Intake Total 1290 ml 100 ml 1135 ml Output Total 10 ml 600 ml Balance 1280 ml 100 ml 535 ml Physical Exam General: Alert, Oriented X3, Cooperative Heart: Regular rate Lungs: Clear, Other (No wheezes or crackles) Abdomen: Soft (ND) Extremities: No clubbing Skin: No rashes, No breakdown Assessment and Plan Assessmemt and Plan Problems Medical Problems: (1) Acute cholecystitis Status: Acute (2) Acute pancreatitis Status: Acute (3) Cholecystitis Status: Acute Goals of Care: Advance Care Planning: Total time spent [id number] with patient greater than 16 minutes in discussion with goals of care, comfort care, end-of-life care, pain management, code status Comment Review of Relevant I have reviewed the following items jeff (where applicable) has been applied. Justifications for Admission General Conditions Other justification for admit: ACUTE CHOLECYSTITIS Other Justification CAMRYN THOMPSON MD Oct 05, 2020 13:06
--- NOTE | 2020-10-05 13:10 | PDOC3 ---
Discharge Summary Visit Information Date of Admission: Sep 28, 2020 Date of Discharge: Oct 05, 2020 Admitting Diagnosis: Gallstone pancreatitis Final Diagnosis Problems Medical Problems: (1) Acute cholecystitis Status: Acute (2) Acute pancreatitis Status: Acute (3) Cholecystitis Status: Acute Brief Hospital Course Allergies Allergies Coded Allergies Type Severity Reaction Last Updated Verified No Known Drug Allergies 09/28/20 No Vital Signs Vital Signs Date Time Temp Pulse Resp B/P (MAP) Pulse Ox O2 Delivery O2 Flow Rate FiO2 10/05/20 10:32 97.7 63 18 117/76 (90) 94 97.7 10/05/20 08:11 Nasal Cannula 2.0 Brief Hospital Course Ms Arguello is a 34 y/o female w/ PMHx morbid obesity admitted through ER for RUQ abdominal pain and vomiting. Labs noted leukocytosis, elevated LFT, elevated lipase. US showed gallstones, fatty liver, GB wall thickening, +Yo's, and CBD 6mm. 09/29/2020: Reports RUQ pain, denies nausea 09/30: Pain continues to improve 10/01: labs and pain improved. Lipase in 600s 10/02: Afebrile. Trying liquid diet today. Discussed plans for CT abdomen/pelvis, if no clear signs of ongoing or worsening pancreatitis she can move forward with cholecystectomy. 10/03: Afebrile. She did have some pain after liquid diet yesterday. Lipase trended down. Given CT results, will delay surgery 24 hours 10/04: Afebrile. Seen post-operatively lap gris. She is feeling numb, but pain free currently. No SOB or CP. Tolerating regular diet well passing flatus. Pain is well controlled. Cleared by surgery to go home. Percocet for pain. Consults: GI, General surgery Problem list: RUQ pain Acute cholecystitis - s/p lap gris 10/04/2020 Acute pancreatitis - gallstone pancreatitis Morbid obesity - counseled on lifestyle modification Greater than 30 minutes spent on d/c home with self care Discharge Information Condition at Discharge: Improved Follow Up: Weeks (1) Disposition/Orders: D/C to Home Scheduled PRN Docusate Sodium (Dok) 100 Mg Capsule, 100 MG PO PRN BID PRN for HARD STOOLS, #60 Ref 0 Prescribed by: Poornima Adams on 10/05/20 0910 Oxycodone/Apap 5-325 (Percocet 5-325 Mg Tablet ) 1 Each Tablet, 1 TAB PO PRN Q6HRS PRN for MODERATE PAIN, #20 Ref 0 Prescribed by: Poornima Adams on 10/05/20 0910 Discontinued Medications Prednisone (Prednisone) 20 Mg Tablet, 20 MG PO DAILY, #6 Prescribed by: SHANIQUE JACKSON APRN on 11/24/18 1405 Justicifation of Admission Dx: Justifications for Admission: Justification of Admission Dx: Yes CAMRYN THOMPSON MD Oct 05, 2020 13:10
[2020-10-05 14:26] VITALS: BP 114/76
--- NOTE | 2020-10-05 18:07 | PATHOLOGY ---
[facility] Accession Number: [id number] . 01 Material submitted: . gallbladder - GALLBLADDER AND CONTENTS . 01 Clinical history: . ACUTE CHOLECYSTITIS . 02 Diagnosis: Gallbladder, laparoscopic cholecystectomy: - Cholelithiasis. - Cholesterolosis. - Chronic and focal acute cholecystitis with focally increased eosinophils. (JPM:management manager; 10/05/2020) MBR 10/05/2020 1546 Local . 02 Comment: There is no evidence of malignancy. (JPM:management manager; 10/05/2020) . 02 Electronically signed: . Rich Zafar MD, Pathologist NPI- [id number] . 01 Gross description: . Fixative: Formalin Labeled: Gallbladder and contents Specimen received: Intact gallbladder Dimensions: 7.4 x 3.5 x 2.1 cm Serosa: [place] Lymph node: Not identified Mucosa: Velvety, pink-ramos Average wall thickness: 0.1 cm Calculi: Present displaying a bright yellow and nodular appearance Abnormalities: None identified . Supervisor Sunglasses body, fundus, and the cystic duct margin in A1. (CAA; 10/04/2020) QA/QAC 10/04/2020 1646 Local . 02 Pathologist provided ICD-10: K80.12, K82.4 . 02 CPT . 433614 Specimen Comment: A courtesy copy of this report has been sent to [phone] Specimen Comment: [id number] Specimen Comment: Report sent to / DR JAY Performed at: 01 [facility] [address], [place], [place] [id number] MD Neeraj Mock MD Phone: [phone] Performed at: 02 [facility] [address] [place], [place] [id number] MD Rich Zafar MD Phone: [phone]
== END 2020-10-05 16:30 | disposition home or self-care (01) | DRG 417 ==
LOC: ER 12:18 → 4 NORTH 16:00
PROVIDERS: ADMIT Family Medicine; ATTEND Family Medicine
PROC: 0FT44ZZ Resection of Gallbladder, Percutaneous Endoscopic Approach (ICD-10-PCS; principal; 2020-10-04 10:15)
DX: K80.00 Calculus of gallbladder with acute cholecystitis without obstruction (principal); K85.10 Biliary acute pancreatitis without necrosis or infection; R65.10 Systemic inflammatory response syndrome (SIRS) of non-infectious origin without acute organ dysfunction; Z68.42 Body mass index [BMI] 45.0-49.9, adult; E66.01 Morbid (severe) obesity due to excess calories; I10 Essential (primary) hypertension; K76.0 Fatty (change of) liver, not elsewhere classified; Z20.822 Contact with and (suspected) exposure to COVID-19; Z82.49 Family history of ischemic heart disease and other diseases of the circulatory system; Z90.49 Acquired absence of other specified parts of digestive tract; K21.9 Gastro-esophageal reflux disease without esophagitis
CPT/HCPCS: 36415; 74177; 76705; 80048; 80053; 80076; 81001; 81025; 82962; 83690; 85025; 87086; 87426; 88304; 93005; 96361; 96374; 96375; A4364; A4657; A4930; A6219; C9113; J1100; J1650; J2250; J2405; J2543; J2704; J2710; J3010; J3480; J3490; J7030; J7120; Q9966; Q9967; U0003; 99285-25; G0378

== ENCOUNTER 2020-11-01 17:30 | Emergency (ER) | payer SELFPAY ==
[~2020-11-01] VITALS: Ht 157.5 cm; Wt 113.6 kg
[~2020-11-01 17:30] MED LIST changes: +DOCU-153 PO; +OXYC1TAB15 PO
[2020-11-01] MEDS: IV NORMAL SALINE 1000ML BAG 1,000 ML IV ONE (20:41)
[2020-11-01 20:47] LABS: BASO # 0.1 x10^3/uL (0.0-0.2); BASO % 1 % (0-3); EOS # 0.3 x10^3/uL (0.0-0.7); EOS % 4 % (0-3); HEMATOCRIT 35.5 % (36.0-47.0); HEMOGLOBIN 11.9 g/dL (12.0-15.5); LYMPH # 2.9 x10^3/uL (1.0-4.8); LYMPH % 35 % (24-48); MEAN CORPUSCULAR HEMOGLOBIN 31 pg (25-35); MEAN CORPUSCULAR HGB CONC 34 g/dL (31-37); MEAN CORPUSCULAR VOLUME 91 fL (79-100); MONO # 0.7 x10^3/uL (0.0-1.1); MONO % 8 % (0-9); NEUT # 4.2 x10^3/uL (1.8-7.7); NEUT % 51 % (31-73); PLATELET COUNT 224 x10^3/uL (140-400); RED BLOOD COUNT 3.89 x10^6/uL (3.50-5.40); RED CELL DISTRIBUTION WIDTH 13.5 % (11.5-14.5); WHITE BLOOD COUNT 8.3 x10^3/uL (4.0-11.0)
[2020-11-01 20:49] LABS: CALCIUM 8.8 mg/dL (8.5-10.1); CREATININE 0.8 mg/dL (0.6-1.0); GFR 80.7
[2020-11-01 20:49] LABS: CLARITY,URINE BLOODY; COLOR,URINE RED
[2020-11-01 20:52] LABS: RBC,URINE TNTC /HPF (0-2)
[2020-11-01 20:53] LABS: BACTERIA,URINE MANY /HPF (0-FEW)
[2020-11-01 20:54] LABS: PROTHROMBIN TIME PATIENT 13.9 SEC (11.7-14.0)
[2020-11-01 20:55] LABS: ALBUMIN 3.3 g/dL (3.4-5.0); ALBUMIN/GLOBULIN RATIO 0.8 (1.0-1.7); TOTAL BILIRUBIN 0.3 mg/dL (0.2-1.0); TOTAL PROTEIN 7.6 g/dL (6.4-8.2)
--- NOTE | 2020-11-01 21:13 | PHYS DOC ---
Past Medical History Past Medical History: No Pertinent History (CORNEL SABA APRN) Past Surgical History: Cholecystectomy, (CORNEL SABA PROCESS OPERATOR) Smoking Status: Never Smoker Alcohol Use: None Drug Use: None (CORNEL SABA APRN) General Adult EDM: Chief Complaint: VAGINAL BLEEDING HPI: HPI: Patient is a 35 year old female who presents with 3 days of heavy vaginal bleeding of which she has had been having to wear a brief and going through soaked briefs 3 of them a day. She states that she has had blood clots the size of her head and she has been feeling dizzy. She is a history of cholecystectomy and a .-Denies chest pain, shortness of breath, numbness or tingling, fever, urinary symptoms, abnormal vaginal discharge, sexually transmitted disease concerns, Abdominal pain, nausea, vomiting, diarrhea. (CORNEL SABA PROCESS OPERATOR) Review of Systems: Review of Systems: Constitutional: Denies fever or chills. [] Eyes: Denies change in visual acuity. [] HENT: Denies nasal congestion or sore throat. [] Respiratory: Denies cough or shortness of breath. [] Cardiovascular: Denies chest pain or edema. [] GI: Denies abdominal pain, nausea, vomiting, bloody stools or diarrhea. [] : Denies dysuria. +Vaginal bleeding [] Musculoskeletal: Denies back pain or joint pain. [] Integument: Denies rash. [] Neurologic: Denies headache, focal weakness or sensory changes. + Dizziness [] Endocrine: Denies polyuria or polydipsia. [] Lymphatic: Denies swollen glands. [] Psychiatric: Denies depression or anxiety. [] (CORNEL SABA PROCESS OPERATOR) Heart Score: C/O Chest Pain: No Risk Factors: Risk Factors: DM, Current or recent (<one month) smoker, HTN, HLP, family history of CAD, obesity. Risk Scores: Score 0 - 3: 2.5% MACE over next 6 weeks - Discharge Home Score 4 - 6: 20.3% MACE over next 6 weeks - Admit for Clinical Observation Score 7 - 10: 72.7% MACE over next 6 weeks - Early Invasive Strategies (CORNEL SABA PROCESS OPERATOR) Current Medications: Current Medications Medications (Trade) Dose Ordered Sig/Jitendra Start Time Stop Time Status Last Admin Dose Admin Sodium Chloride 1,000 ml @ 1,000 mls/hr 1X ONCE 11/01/20 20:30 11/01/20 21:29 11/01/20 20:41 1,000 MLS/HR (CORNEL SABA PROCESS OPERATOR) Allergies: Allergies: Allergies Coded Allergies Type Severity Reaction Last Updated Verified No Known Drug Allergies 09/28/20 No (CORNEL SABA PROCESS OPERATOR) Physical Exam: PE: Constitutional: Well developed, well nourished, no acute distress, non-toxic appearance. [] HENT: Normocephalic, atraumatic, bilateral external ears normal, oropharynx moist, no oral exudates, nose normal. [] Eyes: PERRLA, EOMI, conjunctiva normal, no discharge. [] Neck: Normal range of motion, no tenderness, supple, no stridor. [] Cardiovascular:Heart rate regular rhythm, no murmur [] Lungs & Thorax: Bilateral breath sounds clear to auscultation [] Abdomen: Bowel sounds normal, soft, no tenderness, no masses, no pulsatile masses. [] Skin: Warm, dry, no erythema, no rash. [] Back: No tenderness, no CVA tenderness. [] Extremities: No tenderness, no cyanosis, no clubbing, ROM intact, no edema. [] Neurologic: Alert and oriented X 3, normal motor function, normal sensory function, no focal deficits noted. [] Psychologic: Affect normal, judgement normal, mood normal. Normal physical exam [] ([facility] Current Patient Data: Labs: Laboratory Tests Test 11/01/20 20:05 11/01/20 20:27 Urine Collection Type Void Urine Color Red Urine Clarity Bloody Urine pH (<5.0-8.0) Urine Specific [place] (1.000-1.030) Urine Protein mg/dL (NEG-TRACE) Urine Glucose (UA) mg/dL (NEG) Urine Ketones (Stick) mg/dL (NEG) Urine Blood (NEG) Urine Nitrite (NEG) Urine Bilirubin (NEG) Urine Urobilinogen Dipstick mg/dL (0.2 mg/dL) Urine Leukocyte Esterase (NEG) Urine RBC Tntc /HPF (0-2) Urine WBC 11-20 /HPF (0-4) Urine Squamous Epithelial Cells Many /LPF Urine Bacteria Many /HPF (0-FEW) Urine Mucus Mod /LPF White Blood Count 8.3 x10^3/uL (4.0-11.0) Red Blood Count 3.89 x10^6/uL (3.50-5.40) Hemoglobin 11.9 g/dL (12.0-15.5) L Hematocrit 35.5 % (36.0-47.0) L Mean Corpuscular Volume 91 fL (79-100) Mean Corpuscular Hemoglobin 31 pg (25-35) Mean Corpuscular Hemoglobin Concent 34 g/dL (31-37) Red Cell Distribution Width 13.5 % (11.5-14.5) Platelet Count 224 x10^3/uL (140-400) Neutrophils (%) (Auto) 51 % (31-73) Lymphocytes (%) (Auto) 35 % (24-48) Monocytes (%) (Auto) 8 % (0-9) Eosinophils (%) (Auto) 4 % (0-3) H Basophils (%) (Auto) 1 % (0-3) Neutrophils # (Auto) 4.2 x10^3/uL (1.8-7.7) Lymphocytes # (Auto) 2.9 x10^3/uL (1.0-4.8) Monocytes # (Auto) 0.7 x10^3/uL (0.0-1.1) Eosinophils # (Auto) 0.3 x10^3/uL (0.0-0.7) Basophils # (Auto) 0.1 x10^3/uL (0.0-0.2) Prothrombin Time 13.9 SEC (11.7-14.0) Prothrombin Time INR 1.1 (0.8-1.1) Sodium Level 142 mmol/L (136-145) Potassium Level 4.0 mmol/L (3.5-5.1) Chloride Level 106 mmol/L (98-107) Carbon Dioxide Level 28 mmol/L (21-32) Anion Gap 8 (6-14) Blood Urea Nitrogen 12 mg/dL (7-20) Creatinine 0.8 mg/dL (0.6-1.0) Estimated GFR (Cockcroft-Gault) 80.7 BUN/Creatinine Ratio 15 (6-20) Glucose Level 77 mg/dL (70-99) Calcium Level 8.8 mg/dL (8.5-10.1) Total Bilirubin 0.3 mg/dL (0.2-1.0) Aspartate Amino Transferase (AST) 30 U/L (15-37) Alanine Aminotransferase (ALT) 32 U/L (14-59) Alkaline Phosphatase 60 U/L (46-116) Total Protein 7.6 g/dL (6.4-8.2) Albumin 3.3 g/dL (3.4-5.0) L Albumin/Globulin Ratio 0.8 (1.0-1.7) L Laboratory Tests 11/01/20 20:27 Laboratory Tests 11/01/20 20:27 Vital Signs: Vital Signs Date Time Temp Pulse Resp B/P (MAP) Pulse Ox O2 Delivery O2 Flow Rate FiO2 11/01/20 20:05 98.5 94 17 163/97 (119) 100 Room Air 98.5 (CORNEL SABA APRN) EKG: EKG: [] (CORNEL SABA APRN) Radiology/Procedures: Radiology/Procedures: [] Impression: [facility] [address] [place], [place] [id number] IMAGING REPORT Signed PATIENT: LUIS M TOURE ACCOUNT: [id number] : 1985 LOCATION: ER AGE: 35 SEX: F EXAM STATUS: REG ER ORD. PHYSICIAN: CORNEL SABA APRN REASON: HEAVY VAGINAL BLEEDING PROCEDURE: TRANSVAGINAL US TRANSVAGINAL Clinical Indication: Reason: HEAVY VAGINAL BLEEDING Comparison: None. TECHNIQUE: Real-time ultrasound imaging of the pelvis using transvaginal window is performed. Findings: There are small nabothian cysts, largest measures 8 mm. Uterus is anteverted. No focal abnormality. Uterus measures 9 x 6.2 x 5.5 cm. The endometrial stripe is normal measuring 12 mm. The ovaries are symmetric in size and demonstrate normal blood flow. Ovaries demonstrate small follicles. Fluid is seen in the cervix and vaginal canal, patient is currently menstruating. No pelvic free fluid is seen. No evidence of adnexal mass. IMPRESSION: 1. Normal blood flow in the ovaries. 2. Endometrial stripe is normal. 3. Small nabothian cysts. Electronically signed by: Angelito Ibanez MD (11/01/2020 9:57 PM) [facility] DICTATED and SIGNED BY: ANGELITO IBANEZ MD DATE: 11/01/20 [id number] 0 (CORNEL SABA APRN) Course & Med Decision Making: Course & Med Decision Making Pertinent Labs and Imaging studies reviewed. (See chart for details) See HPI. Alert and oriented x4. Ambulatory with a steady gait. Speaks in full clear sentences. Skin pink warm and dry. Abdomen soft and nontender. Pelvic Exam: Blood Bank Technologist present Abdomen: Nontender External Genitalia: Normal Skin Speculum: Normal vaginal mucosa, bloody cervical discharge Bimanual: No adnexal masses or tenderness, No CMT Ultrasound showed no acute findings. Blood work is unremarkable. I called and spoke to Dr. Ibarra who states that the patient needs to call office and she will get follow-up care. [] (CORNEL SABA APRN) Course & Med Decision Making I oversaw on the above date of service of this patient and discussed the care wi th the MULTIMEDIA MANAGER. I agree with the findings, plan of care, and disposition as documented. Electronically signed, Piyush Elliott DO (PIYUSH ELLIOTT DO) Sandra Disclaimer: Sandra Disclaimer: This electronic medical record was generated, in whole or in part, using a voice recognition dictation system. (CORNEL SABA APRN) Departure Departure Impression: Primary Impression: Dizziness Additional Impression: Vaginal bleeding Disposition: HOME / SELF CARE / HOMELESS Condition: STABLE Referrals: NO PCP (PCP) JONATHAN PRADO MD Patient Instructions: Dysmenorrhea Additional Instructions: Follow-up with gynecology provider soon as possible. Have referred you to one. Call in the morning to get a appointment. Drink plenty of fluids. CORNEL SABA APRN November 01, 2020 21:13 PIYUSH ELLIOTT DO November 07, 2020 00:03
--- NOTE | 2020-11-01 22:00 | RAD ---
US TRANSVAGINAL Clinical Indication: Reason: HEAVY VAGINAL BLEEDING Comparison: None. TECHNIQUE: Real-time ultrasound imaging of the pelvis using transvaginal window is performed. Findings: There are small nabothian cysts, largest measures 8 mm. Uterus is anteverted. No focal abnormality. U terus measures 9 x 6.2 x 5.5 cm. The endometrial stripe is normal measuring 12 mm. The ovaries are symmetric in size and demonstrate normal blood flow. Ovaries demonstrate small follic les. Fluid is seen in the cervix and vaginal canal, patient is currently menstruating. No pelvic free fluid is seen. No evidence of adnexal mass. IMPRESSION: 1. Normal blood flow in the ovaries. 2. Endometrial stripe is normal. 3. Small nabothian cysts. Electronically signed by: Angelito Ibanez MD (11/01/2020 9:57 PM) [facility]
[2020-11-01 22:47] VITALS: BP 134/79
== END 2020-11-01 22:56 | disposition home or self-care (01) ==
LOC: ER 17:30
DX: N93.9 Abnormal uterine and vaginal bleeding, unspecified (principal); R42 Dizziness and giddiness; Z90.49 Acquired absence of other specified parts of digestive tract
CPT/HCPCS: 36415; 76830; 80053; 81001; 85025; 85610; 86850; 86900; 86901; 87086; 96360; 96361; 99284; J7030